=== PATIENT | female | born 1950 | race Caucasian/White ===

== ENCOUNTER 2020-02-19 14:30 | Outpatient (RCR) | payer SELFPAY | END 2020-03-15 23:59 | disposition home or self-care (01) | LOC: SPT 14:30 | PROVIDERS: PCP Family Medicine; Referring Provider Family Medicine; Visit Provider Family Medicine | DX: M54.89 Other dorsalgia (principal); M47.896 Other spondylosis, lumbar region | CPT/HCPCS: 97110; 97161 ==

== ENCOUNTER 2020-03-16 06:00 | Outpatient (RCR) | payer SELFPAY | END 2020-04-14 23:59 | disposition home or self-care (01) | LOC: SPT 06:00 | PROVIDERS: PCP Family Medicine; Referring Provider Family Medicine; Visit Provider Family Medicine | DX: M54.89 Other dorsalgia (principal); G89.29 Other chronic pain | CPT/HCPCS: 97110 ==

== ENCOUNTER 2020-03-29 12:07 | Emergency (ER) | payer SELFPAY ==
[2020-03-29 12:10] VITALS: BP 174/88; PULSE 80; RESP 18; TEMP 36.5; O2SAT 98; BMI 26.2
[2020-03-29] MEDS: ketorolac 30 mg/mL INJ IM (12:42)
[2020-03-29 13:03] VITALS: PULSE 70; O2SAT 99
--- NOTE | 2020-03-29 13:43 | ED_ITS ---
HPI - Back Pain/Injury General: Chief Complaint: Back Pain/Injury Stated Complaint: BACK PAIN Time Seen by Provider: 03/29/20 12:15 Source: patient Mode of arrival: ambulatory Limitations: no limitations History of Present Illness: MD elicited complaint: back pain Pertinent past history: prior back pain Timing: constant Similar Symptoms Previously: Yes Quality: burning and spasming Location: right upper back Radiation: none Exacerbating factors: movement Relieving factors: none Context: while lifting, turning/twisting, bending and other (Pt states this started after her last physical therapy session and then she was lifting [employer] boxes) Associated symptoms: Reports no associated symptoms and other (denies chest pain or SOB); Deny abdominal pain, arthralgias, chills, change in bowel habits, difficulty walking, dysuria, fatigue, fecal incontinence, fever(s), hematuria, myalgias, nausea, numbness, syncope, tingling/numbness/burning, urinary frequency, urinary urgency, vomiting or weakness Review of Systems Const: Denies: fever(s), chills or fatigue Eyes: Denies: change in vision, blurry vision, blind spots, photophobia, eye discomfort, eye discharge, eye redness, floaters or seeing flashes ENMT: Denies: throat pain, uvular edema, enlarged tonsils, odynophagia, hoarseness, mouth pain, swelling of lips/tongue, oral sores, bleeding gums, dental pain, dry mouth, ear or mastoid pain, ear discharge, change in hearing, tinnitus, disequilibrium, nasal discharge, nasal congestion, post nasal drip or sinus pain Card: Denies: syncope Resp: Denies: dyspnea, productive cough, non-productive cough, wheezing, stridor, pain on inspiration, change in phlegm color, hemoptysis or chest congestion GI: Denies: abdominal pain, nausea, vomiting, fecal incontinence or change in bowel habits : Denies: dysuria, urinary urgency or hematuria Musc: Denies: neck pain, extremity pain, extremity swelling, joint pain, joint swelling, joint redness, joint warmth or deformity Skin/Breast: Denies: rash, pruritus, erythema, sores, new lesions, changes in skin color or dry skin Neuro: Denies: difficulty walking Psych: Denies: anxiety, depression, suicidal ideation or homicidal ideation Endo: Denies: polyuria, polydipsia, tired all the time, cold intolerance, excessive sweating, flushing, hot flashes or heat intolerance Cristobal/Lymph: Denies: easy bruising, easy bleeding, petechiae, purpura, enlarged lymph nodes or tender lymph nodes All/Imm: Denies: urticaria, throat swelling, tongue swelling, facial swelling, acute wheezing or itchy eyes Physical Exam Const: COMMON NORMALS: no acute distress, patient oriented x3 and no limitations HENMT: THROAT: no uvular edema Chest: COMMONS NORMALS: normal inspection of the chest and normal palpation of entire chest wall Resp: COMMON NORMALS: normal respiratory effort, No retractions, No use of accessory muscles and clear to auscultation bilaterally AUSCULTATION: clear to auscultation bilaterally Cardio: COMMON NORMALS: regular rate and regular rhythm RATE: regular rate RHYTHM: regular rhythm : COMMON NORMALS: Yes no CVA tenderness and Yes normal external appearance BLADDER/KIDNEY EXAM: Yes no CVA tenderness and No CVA tenderness Back/Pelvis: COMMON NORMALS: no CVA tenderness, thoracic and lumbar spine normal to inspection, no thoracic nor lumbar tenderness, thoraco-lumbar ROM normal and straight leg raise negative bilaterally GENERAL BACK: No CVA tenderness, No erythema and No warmth THORACIC SPINE/UPPER BACK: Yes normal to inspection, Yes thoracic ROM normal, No thoracic spinal tenderness, Yes paraspinal muscle tenderness and Yes paraspinal muscle spasm LUMBAR SPINE/LOWER BACK: Yes normal to inspection and Yes lumbar ROM normal Extremity: COMMON NORMALS: normal to inspection, full ROM and capillary refill normal Neuro: COMMON NORMALS: patient oriented x3, CN's II-XII intact bilaterally, moves all extremities, no focal motor deficits, no sensory deficits noted and deep tendon reflexes 2+ bilaterally Psych: COMMON NORMALS: mental status grossly normal, Normal thought process present, cooperative, normal affect, speech normal, activity/motor behavior normal, denies hallucinations, denies homicidal ideation and denies suicidal ideation SPEECH: Yes normal speech THOUGHT PROCESS: Normal thought process present Skin: COMMON NORMALS: no rashes or lesions noted, no wounds and turgor normal GENERAL SKIN EXAM: no rashes or lesions noted and turgor normal Course Vital Signs: Vital signs: Vital Signs Temperature 97.7 F 03/29/20 12:10 Pulse Rate 70 03/29/20 13:03 Respiratory Rate 18 03/29/20 12:10 Blood Pressure 174/88 03/29/20 12:10 Pulse Oximetry 99 03/29/20 13:03 MDM - Back Pain/Injury MDM Narrative: Medical decision making narrative: 69 nyo [place] female patient presents with muscle spasm. 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 Pt goes to PT seconadary to a fractured T spine 2 years ago. Pt denies any chest pain or SOB. pain is reproducable. Pt states this pain is chronic for her but her tylenol is not helping with the muscle spams. pt dnies any fever. CAUTI considered but pt denies UA symptoms. no losss of bowel or bladder denies numbness or tingling. Pt was given toradol here and had clinical improvement. I will send home with short course of valium and have her follow up with PCP on tuesday. Pts abd is soft and nontedner. Pt ambulates without difficulty Differential Diagnosis: Differential diagnosis back pain/injury: Likely lumbar radiculopathy, sciatica, strain of lumbar region, renal colic, pyelonephritis, thoracic back pain, AAA and discitis Medical Records: Attestation: I reviewed the patient's medical records. Discharge Plan Discharge Clinical Impression: Muscle strain Condition: Stable Prescriptions: New Valium 2 mg tablet 2 mg PO TID PRN (Reason: muscle spasm) 3 Days Qty: 14 RF: 0 No Action Synthroid 100 mcg tablet 100 mcg PO DAILY RF: 0 Jade-D 12 Hour 60-120 mg tablet extended release 12 hr 1 tab PO DAILY RF: 0 Nexium 20 mg Capsule,Delayed Release(Dr/Ec) 20 mg PO DAILY PRN (Reason: Heartburn) RF: 0 Discharge Orders: Discharge Order (Routine); Ordered 03/29/20 Ordered By: Juli Salcedo Referrals: Eugene Arce [Primary Care Provider] - Discharge Diet: Advance as tolerated Discharge Activity: Limit activity as instructed Activity Restrictions/Additional Instructions: Please continue to take your tylenol per label directions Take Valium as needed for muscle spasms please note this can make you at risk for fall so please take extra fall precautions as discussed Please return to ER with increased pain, fever, chest pain or shortness of breath, numbness or tingling or loss of bowel or bladder or any other concerning symptoms Coding Level of Care Code ED Electronic Coils Supervisor for Ajay Bone
== END 2020-03-29 13:04 ==
PROVIDERS: Emergency Provider Registered Nurse; PCP Family Medicine
DX: S39.012A Strain of muscle, fascia and tendon of lower back, initial encounter (principal); X50.0XXA Overexertion from strenuous movement or load, initial encounter
CPT/HCPCS: 12345; 96372; 99281; 99283; J1885

== ENCOUNTER 2020-04-04 11:25 | Emergency (ER) | payer SELFPAY ==
[2020-04-04 11:42] VITALS: PULSE 75; RESP 16; TEMP 36.2; O2SAT 98; BMI 26.2
--- NOTE | 2020-04-04 12:15 | XR_ITS ---
WS: [id number] Exam: XR lumbar spine 2-3V* [id number] Date/Time of Exam: 04/04/2020 12:34 PM Reason For Exam: pain Comparison 03/28/2019. No acute fracture or dislocation. Degenerative vacuum disc at L4-5. Mild spondylosis. Old healed comp ression fracture of T12 without significant displacement. Osteopenia. Facet DJD at L4-5 and L5-S1. Mi ld DJD of the SI joints. XR/XR lumbar spine 2-3V* [id number] IMPRESSION: 1. No acute fracture or malalignment. 2. Degenerative changes and osteopenia. 3. Old nondisplaced biconcave compression fracture of T12.
--- NOTE | 2020-04-04 12:15 | XR_ITS ---
WS: [id number] Exam: XR thoracic spine 3V* [id number] Date/Time of Exam: 04/04/2020 12:34 PM Reason For Exam: back pain Comparison 03/28/2019 A mild compression fracture of the cephalad end plate of T9 is noted. Age is indeterminate. This was not identified on the prior study. Old compression fracture of the T12 noted without displacement. No other fractures of the T-spine. Increased thoracic kyphosis. Levoscoliosis of the T-spine and osteop enia. Paraspinal soft tissue structures are unremarkable. XR/XR thoracic spine 3V* [id number] IMPRESSION: 1. Low-grade compression fracture of the upper plate of T9 with about 10% loss of vertebral height and no posterior displacement. Fracture age is indeterminat e. This could be a recent fracture. 2. Old healed fracture of T12 without displacement. 20% loss of vertebral heigh t. 3. Mild degenerative changes, osteopenia and scoliosis. Increased kyphosis.
[2020-04-04 12:25] VITALS: BP 161/70; O2SAT 100
--- NOTE | 2020-04-04 12:44 | ED_ITS ---
HPI - Back Pain/Injury General: Chief Complaint: Back Pain/Injury Stated Complaint: BACK PAIN Time Seen by Provider: 04/04/20 11:45 History of Present Illness: HPI Narrative: 69-year-old female comes in complaining of back pain mid back on the right side of the spine. Is reproducible with palpation and with movement. She states that 2 years ago she had a fall that resulted in what she was told is a T12 fracture. Pertinent past history: prior back pain Onset (ago): day(s) Similar Symptoms Previously: Yes Quality: sharp and stabbing Location: thoracic spine (Right of the midline at the T10-12 level) Radiation: none Exacerbating factors: movement, walking, coughing/sneezing and lifting Relieving factors: supine Context: turning/twisting and bending Associated symptoms: Deny abdominal pain, arthralgias, chills, change in bowel habits, difficulty walking, dysuria, fatigue, fecal incontinence, fever(s), hematuria, myalgias, nausea, numbness, syncope, tingling/numbness/burning, urinary frequency, urinary urgency, vomiting or weakness Review of Systems Const: Denies: fever(s), chills or fatigue Card: Denies: syncope GI: Denies: abdominal pain, nausea, vomiting, fecal incontinence or change in bowel habits : Denies: dysuria, urinary urgency or hematuria Neuro: Denies: difficulty walking Physical Exam Const: COMMON NORMALS: no acute distress GENERAL APPEARANCE: cooperative and comfortable ORIENTATION/CONSCIOUSNESS: Yes awake, Yes oriented to person, Yes oriented to place and Yes oriented to time HENMT: COMMON NORMALS: normocephalic, atraumatic and hearing grossly normal bilaterally HEAD & SCALP: normocephalic and atraumatic Eye: COMMON NORMALS: Equal, round and reactive pupils present, EOMs intact bilaterally, conjunctivae normal and no scleral icterus CONJUNCTIVA: Yes conjunctivae normal PUPIL: Yes Equal, round and reactive pupils present Neck/C-Spine: COMMON NORMALS: no JVD Lymph: LYMPHATIC: no lymphadenopathy noted and no lymphedema noted Resp: COMMON NORMALS: normal respiratory effort, No retractions, No use of accessory muscles and clear to auscultation bilaterally AUSCULTATION: clear to auscultation bilaterally Cardio: COMMON NORMALS: no JVD, regular rate, regular rhythm and No murmurs present (Cardio) RATE: regular rate RHYTHM: regular rhythm GI: COMMON NORMALS: Soft to palpation and No hepatosplenomegaly present AUSCULTATION: Yes normoactive bowel sounds PALPATION: Yes Soft to palpation, No Tenderness to palpation present (GI), No Guarding due to palpation present (GI) and Yes No hepatosplenomegaly present Back/Pelvis: OTHER: Discomfort at the T9-10 level on the right laterally no pain over the spinous process Extremity: COMMON NORMALS: normal to inspection, capillary refill normal, no clubbing, cyanosis or edema, no calf tenderness and no pedal edema Neuro: SENSORIUM/ORIENTATION: Yes oriented to person, Yes oriented to place and Yes oriented to time Skin: COMMON NORMALS: no rashes or lesions noted GENERAL SKIN EXAM: no rashes or lesions noted Course Vital Signs: Vital signs: Vital Signs Temperature 97.2 F L 04/04/20 11:42 Pulse Rate 75 04/04/20 11:42 Respiratory Rate 16 04/04/20 11:42 Blood Pressure 161/70 04/04/20 12:25 Pulse Oximetry 100 04/04/20 12:25 Discharge Plan Discharge Patient Disposition: Home Clinical Impression: Compression fracture of thoracic vertebra, Osteoporosis Condition: Stable Prescriptions: New hydrocodone-acetaminophen 5-325 mg tablet 1 tab PO Q6H PRN (Reason: pain) Qty: 25 RF: 0 No Action Synthroid 100 mcg tablet 100 mcg PO DAILY RF: 0 Jade-D 12 Hour 60-120 mg tablet extended release 12 hr 1 tab PO DAILY RF: 0 Nexium 20 mg Capsule,Delayed Release(Dr/Ec) 20 mg PO DAILY PRN (Reason: Heartburn) RF: 0 Discharge Orders: Discharge Order (Routine); Ordered 04/04/20 Ordered By: Abdoulaye Heredia Referrals: Eugene Arce [Primary Care Provider] - Discharge Diet: Usual diet Discharge Activity: Limit activity as instructed Activity Restrictions/Additional Instructions: Avoid lifting greater than 10 pounds. Avoid stooping or bending. Pain medications as prescribed above. Case management will make arrangements for you to get into the pain clinic for evaluation for kyphoplasty. You also need to be seen by your primary care doctor for osteoporosis. Coding Level of Care Code ED Primary Care Nurse for Ajay Bone
[2020-04-04] MEDS: HYDROcodone-acetaminophen 5-325 mg Tablet 1 TAB PO (12:47)
[2020-04-04 13:26] VITALS: BP 167/77; PULSE 73; RESP 18; O2SAT 100
== END 2020-04-04 13:26 | disposition home or self-care (01) ==
PROVIDERS: Emergency Provider Family Medicine; PCP Family Medicine
DX: S22.070A Wedge compression fracture of T9-T10 vertebra, initial encounter for closed fracture (principal); W19.XXXA Unspecified fall, initial encounter; M81.0 Age-related osteoporosis without current pathological fracture
CPT/HCPCS: 12345; 72072; 72100; 99281; 99283

== ENCOUNTER 2020-04-22 11:30 | Emergency (ER) | payer SELFPAY ==
[2020-04-22 11:36] VITALS: BP 152/82; PULSE 84; RESP 18; TEMP 36; O2SAT 92; BMI 26.2
--- NOTE | 2020-04-22 11:47 | W.ED.BACK ---
HPI - Back Pain/Injury General: Chief Complaint: Back Pain/Injury Stated Complaint: BACK PAIN/INJURY Time Seen by Provider: 04/22/20 11:35 History of Present Illness: HPI Narrative: 69-year-old female who was seen in the emergency room proved previously with a current vertebral compression fracture continues to have pain. She returns today simply because she wanted her hydrocodone refilled she has follow-up with her primary care doctor and she is in the process of getting referred for kyphoplasty she denies any other new injuries denies any new pain just same pain she had before has not otherwise been sick lately. Associated symptoms: Deny abdominal pain, chills, dysuria, fatigue, fever(s), nausea, urinary urgency or vomiting Review of Systems Const: Denies: fever(s), chills, body aches, change in appetite, fatigue or malaise ENMT: Denies: throat pain, ear or mastoid pain, nasal discharge or nasal congestion Card: Denies: chest pain, edema, dyspnea on exertion or orthopnea Resp: Denies: dyspnea, productive cough or non-productive cough GI: Denies: abdominal pain, nausea, vomiting, hematemesis, coffee ground emesis, diarrhea, constipation, bloating, hematochezia or melena : Denies: flank pain, difficulty voiding, dysuria, urinary frequency or urinary urgency Physical Exam Const: COMMON NORMALS: no acute distress GENERAL APPEARANCE: cooperative and comfortable ORIENTATION/CONSCIOUSNESS: Yes awake, Yes oriented to person, Yes oriented to place and Yes oriented to time HENMT: COMMON NORMALS: normocephalic, atraumatic and hearing grossly normal bilaterally HEAD & SCALP: normocephalic and atraumatic Eye: COMMON NORMALS: Equal, round and reactive pupils present, EOMs intact bilaterally, conjunctivae normal and no scleral icterus CONJUNCTIVA: Yes conjunctivae normal PUPIL: Yes Equal, round and reactive pupils present Neck/C-Spine: COMMON NORMALS: no JVD Resp: COMMON NORMALS: normal respiratory effort, No retractions, No use of accessory muscles and clear to auscultation bilaterally AUSCULTATION: clear to auscultation bilaterally Cardio: COMMON NORMALS: no JVD, regular rate, regular rhythm and No murmurs present (Cardio) RATE: regular rate RHYTHM: regular rhythm Extremity: COMMON NORMALS: normal to inspection, capillary refill normal, no clubbing, cyanosis or edema, no calf tenderness and no pedal edema Neuro: SENSORIUM/ORIENTATION: Yes oriented to person, Yes oriented to place and Yes oriented to time Skin: COMMON NORMALS: no rashes or lesions noted GENERAL SKIN EXAM: no rashes or lesions noted Course Vital Signs: Vital signs: Vital Signs Temperature 96.8 F L 04/22/20 11:36 Pulse Rate 79 04/22/20 12:02 Respiratory Rate 18 04/22/20 12:02 Blood Pressure 152/82 04/22/20 12:02 Pulse Oximetry 97 04/22/20 12:02 MDM - Back Pain/Injury MDM Narrative: Medical decision making narrative: We will see if we get her into the local pain management or orthopedics for kyphoplasty syndrome. Encourage her to follow-up with her primary care doctor for refills on pain medication advised at this point we cannot continually refill narcotic pain medications. Patient readily admits the only reason she came in the emergency room was to get her narcotics refilled and she had not seen her primary care doctor in the office. It is during regular office hours she still has a opportunity to go and see him today. Discharge Plan Discharge Patient Disposition: Home Clinical Impression: Compression fracture of thoracic vertebra Condition: Stable Prescriptions: New Zanaflex 2 mg capsule 2 mg PO Q12H PRN (Reason: muscle spasticity) Qty: 14 RF: 0 diclofenac sodium 75 mg tablet,delayed release (DR/EC) 75 mg PO Q12H PRN (Reason: pain) Qty: 20 RF: 0 No Action hydrocodone-acetaminophen 5-325 mg tablet 1 tab PO Q6H PRN (Reason: pain) Qty: 25 RF: 0 Synthroid 100 mcg tablet 100 mcg PO DAILY RF: 0 Jade-D 12 Hour 60-120 mg tablet extended release 12 hr 1 tab PO DAILY RF: 0 Nexium 20 mg Capsule,Delayed Release(Dr/Ec) 20 mg PO DAILY PRN (Reason: Heartburn) RF: 0 Discharge Orders: Discharge ED (Routine); Ordered 04/22/20 Ordered By: Abdoulaye Heredia Referrals: Eugene Arce [Primary Care Provider] - Discharge Diet: Usual diet Discharge Activity: Increase activity as tolerated Activity Restrictions/Additional Instructions: This management will call with assistance to get you referred for a vertebral kyphoplasty earlier. Coding Level of Care Code ED Recreation Program Coordinator for Chg Fwd
[2020-04-22 12:02] VITALS: BP 152/82; PULSE 79; RESP 18; O2SAT 97
--- NOTE | 2020-04-22 12:08 | DCPLANNER ---
consulting sales manager had message to schedule a follow up appointment for patient with ortho, with Dr. Portillo. consulting sales manager called the ortho clinic, spoke with Earnestine, gave clinic patients information. consulting sales manager was told that patients information would be printed and reviewed. Clinic will call patient with appointment information.
--- NOTE | 2020-04-23 13:21 | DCPLANNER ---
Patient has a follow up appointment scheduled for April at 8:[address] Portillo at ortho. Clinic will call patient with appointment information.
--- NOTE | 2020-05-16 13:08 | DCPLANNER ---
Patient had a follow up appointment scheduled for 04.24.20 with ortho - patient did attend appointment.
== END 2020-04-22 12:03 | disposition home or self-care (01) ==
PROVIDERS: Emergency Provider Family Medicine; PCP Family Medicine
DX: S22.000A Wedge compression fracture of unspecified thoracic vertebra, initial encounter for closed fracture (principal); X58.XXXA Exposure to other specified factors, initial encounter
CPT/HCPCS: 12345; 99281

== ENCOUNTER 2020-04-24 13:47 | Outpatient (CLI) | payer SELFPAY ==
--- NOTE | 2020-04-24 13:55 | XR_ITS ---
WS: [id number] SCREENING DEXA SCAN [employer] CLINICAL INFORMATION: RECURRENT COMPRESSION FRACTURES COMPARISON: None. FINDINGS: The L1-L4 bone mineral density measures 0.814 g/cm2. This corresponds to a T score score of -3.0 and Z score of -1.3. Left femoral neck bone mineral density measures 0.728 g/cm2. This corresponds to a T score of -2.2 an d Z score of -0.7. Right femoral neck bone mineral density measures 0.732 g/cm2. This corresponds to a T score -2.2of an d Z score of -0.6. Mean femoral neck bone mineral density measures 0.730 g/cm2. This corresponds to a T score of -2.2 an d Z score of -0.6. XR/XR DEXA axial skeleton* [id number] IMPRESSION: Osteoporosis Patient's FRAX calculated 10 year probability for major osteoporotic fracture i s 41.5 % and osteoporotic hip fracture is 20.0%.
== END 2020-04-24 13:48 | disposition home or self-care (01) ==
LOC: RADWPI 13:52
PROVIDERS: PCP Family Medicine; Visit Provider Family Medicine
DX: M48.50XA Collapsed vertebra, not elsewhere classified, site unspecified, initial encounter for fracture (principal); X58.XXXA Exposure to other specified factors, initial encounter; M81.0 Age-related osteoporosis without current pathological fracture
CPT/HCPCS: 77080

== ENCOUNTER 2020-05-11 11:53 | Emergency (ER) | payer MEDICAID, SELFPAY ==
[2020-05-11 12:15] VITALS: BP 159/87; PULSE 80; RESP 14; TEMP 36.9; O2SAT 100; BMI 25.6
--- NOTE | 2020-05-11 12:20 | ED_ITS ---
HPI - Abdominal Pain General: Chief Complaint: Abdominal Pain Stated Complaint: abdominal pain Time Seen by Provider: 05/11/20 12:15 Source: patient Mode of arrival: ambulatory Limitations: no limitations History of Present Illness: HPI narrative: 69-year-old female states she has been having diffuse abdominal pain over the last week. She states she did have constipation but had a bowel movement 2 days ago. She states she has had colitis before this pain feels similar. States it starts on the right side and wraps around her left side. She states it is cramping pain rates a 5 out of 10. She denies any nausea vomiting or fever. Denies any worsening or improving factors. MD elicited complaint: abdominal pain Associated Symptoms: Denies chills, diarrhea, dysuria, fever(s), nausea and vomiting Review of Systems Const: Denies: fever(s), chills, body aches or change in appetite Eyes: Denies: blurry vision or eye discomfort ENMT: Denies: throat pain or dental pain Card: Denies: chest pain Resp: Denies: dyspnea GI: Reports: abdominal pain; Denies: nausea, vomiting or diarrhea : Denies: dysuria Musc: Denies: neck pain or back pain Skin/Breast: Denies: rash Neuro: Denies: headache(s) Psych: Denies: depression Cristobal/Lymph: Denies: easy bruising All/Imm: Denies: urticaria PFSH ED PFSH: Social History (Updated 04/24/20 @ 09:00 by Heather Herman LPN) Smoking and tobacco status: never smoked Alcohol intake: never Physical Exam Const: COMMON NORMALS: no acute distress, patient oriented x3 and healthy appearing HENMT: COMMON NORMALS: normocephalic and atraumatic HEAD & SCALP: normocephalic and atraumatic Eye: COMMON NORMALS: Equal, round and reactive pupils present and EOMs intact bilaterally PUPIL: Yes Equal, round and reactive pupils present Neck/C-Spine: COMMON NORMALS: full ROM and supple Chest: COMMONS NORMALS: normal inspection of the chest and normal palpation of entire chest wall Resp: COMMON NORMALS: normal respiratory effort, No retractions, No use of accessory muscles and clear to auscultation bilaterally AUSCULTATION: clear to auscultation bilaterally Cardio: COMMON NORMALS: regular rate, regular rhythm and No murmurs present (Cardio) RATE: regular rate RHYTHM: regular rhythm GI: COMMON NORMALS: Normal to inspection, nondistended, normoactive bowel s ounds present, Soft to palpation, non-tender and no masses PALPATION: Yes Soft to palpation Extremity: COMMON NORMALS: normal to inspection and full ROM Neuro: COMMON NORMALS: patient oriented x3, moves all extremities and no focal motor deficits Psych: COMMON NORMALS: mental status grossly normal, Normal thought process present and cooperative THOUGHT PROCESS: Normal thought process present Skin: COMMON NORMALS: no rashes or lesions noted and no wounds GENERAL SKIN EXAM: no rashes or lesions noted Course Vital Signs: Vital signs: Vital Signs Temperature 98.5 F 05/11/20 12:15 Pulse Rate 80 05/11/20 12:15 Respiratory Rate 14 05/11/20 12:15 Blood Pressure 159/87 05/11/20 12:15 Pulse Oximetry 100 05/11/20 12:15 MDM - Abdominal Pain MDM Narrative: Medical decision making narrative: Patient presents here with abdominal pain likely from constipation. CT does show constipation with no signs of acute surgical abdomen. Patient's blood work here is normal. She does have a slight urinary tract infection. We will place her on MiraLAX and Keflex. Her abdominal exam at discharge is benign with no tenderness. Patient is to follow-up with PCP and return if worsening. Lab Data: Labs: Lab Results 05/11/20 05/11/20 05/11/20 Range/Units 12:30 12:50 12:50 WBC 6.8 (4.0-10.0) 10^3/ uL RBC 4.31 (4.1-5.3) 10^6/u L Hgb 12.6 (11.5-15.3) g/dL Hct 38.8 (37.0-47.0) % MCV 90.0 (81-99) fL MCH 29.2 (28.0-34.0) pg MCHC 32.5 (30.0-36.0) g/dL RDW 13.9 (12.1-15.1) % Plt Count 352 (130-400) 10^3/c mm MPV 9.2 (7.4-10.4) fL Neut % (Auto) 55.4 % Lymph % (Auto) 30.9 % [place] % (Auto) 9.0 % Eos % (Auto) 3.4 % Baso % (Auto) 1.2 % Neut # (Auto) 3.77 (1.8-7.7) 10^3/u L Lymph # (Auto) 2.1 (0.8-4.8) 10^3/u L [place] # (Auto) 0.6 (0.2-0.9) 10^3/u L Eos # (Auto) 0.2 (0.0-0.8) 10^3/u L Baso # (Auto) 0.1 (0.0-0.1) 10^3/u L Nucleated RBC % (a uto) 0 % Nucleated RBCs # 0.0 /100WBC Sodium 140 (136-145) mmol/L Potassium 4.3 (3.5-5.1) mmol/L Chloride 101 (98-107) mmol/L Carbon Dioxide 29 (22-29) mmol/L Anion Gap 14.3 (5-19) BUN 14 (8-23) mg/dL Creatinine 0.8 (0.5-0.9) mg/dL GFR Calculation Not Reportable Glucose 123 H (65-115) mg/dL Calculated Osmolal ity 292 (285-295) mOsm/k g Calcium 9.5 (8.5-10.5) mg/dL Total Bilirubin 0.2 (0.15-1.2) mg/dL AST 25 (0-32) U/L ALT 31 (0-33) U/L Alkaline Phosphata se 137 H (35-105) IU/L Total Protein 7.6 (6.6-8.7) g/dL Albumin 4.5 (3.5-5.2) g/dL Globulin 3.1 (1.3-4.6) g/dL Lipase 61 H (13-60) U/L Urine Color Yellow (Yellow) Urine Appearance Hazy A (CLEAR) Urine pH 5 (5-7) Ur Specific Gravit y 1.015 (1.005-1.030) Urine Protein Neg (Negative) Urine Glucose (UA) Norm (Normal) Urine Ketones Negative (Negative) Urine Blood Neg (Negative) Urine Nitrate Negative (Negative) Urine Bilirubin Neg (Negative) Urine Urobilinogen Norm (Negative) mg/dL Ur Leukocyte [place] ase 2+ H (Negative) Urine RBC None (0-2) /hpf Urine WBC 25-40 H (0-5) /hpf Ur Squamous Epith Cells 0-4 H (0-5) /hpf Amorphous Sediment Not Reportable Urine Bacteria 1+ H (NONE) /hpf Urine Mucus Trace /hpf Imaging Data ^: CT Abd/Pel: [facility]'s [facility] [address] [place] [address] CT Scan Report Signed Patient: Lorraine Ko Unit #: [id number] : [id number] Age/Sex: 69 / F ADM Date: 05/11/20 Loc: ER Room/Bed: Attending Dr: Ordering Provider/Ordering MD: Shauna Reid MD Date of Service: 05/11/20 Procedure(s): CT abdomen pelvis wo con [id number] Accession Number(s): [id number] Report Number: [id number] PROCEDURE INFORMATION: Exam: CT Abdomen And Pelvis Without Contrast Exam date and time: 05/11/2020 12:58 PM Age: 69 years old Clinical indication: Abdominal pain; Generalized; Additional info: Abd pain TECHNIQUE: Imaging protocol: Computed tomography of the abdomen and pelvis without contrast. Radiation optimization: All CT scans at this facility use at least one of these dose optimization techniques: automated exposure control; mA and/or kV adjustment per patient size (includes targeted exams where dose is matched to clinical indication); or iterative reconstruction. COMPARISON: No relevant prior studies available. RADIATION DOSE METRICS: Total DLP (mGy-cm): 461.71 FINDINGS: Mediastinal space: Small hiatal hernia. Liver: Normal. No mass. Gallbladder and bile ducts: Normal. No calcified stones. No ductal dilation. Pancreas: Normal. No ductal dilation. Spleen: Normal. No splenomegaly. Adrenal glands: Normal. No mass. Kidneys and ureters: Normal. No hydronephrosis. Stomach and bowel: Moderate stool burden primarily in the proximal colon. There is diverticulosis of the colon without evidence of diverticulitis. Appendix: No evidence of appendicitis. Intraperitoneal space: Unremarkable. No free air. No significant fluid collection. Vasculature: Unremarkable. No abdominal aortic aneurysm. Lymph nodes: Unremarkable. No enlarged lymph nodes. Urinary bladder: Unremarkable as visualized. Reproductive: Unremarkable as visualized. Bones/joints: Chronic T12 compression deformity. There are lower lumbar disc bulges. Benign hemangioma in the L4 vertebra. Soft tissues: Tiny fat containing umbilical hernia. CT/CT abdomen pelvis wo con [id number] IMPRESSION: No acute findings. There is a moderate stool burden in the proximal colon. Discharge Plan Discharge Patient Disposition: Home Clinical Impression: Acute cystitis Constipation Qualifiers: Constipation type: unspecified constipation type Qualified Code(s): K59.00 - Constipation, unspecified Condition: Stable Prescriptions: New Keflex 500 mg capsule 500 mg PO Q6H 7 Days Qty: 28 RF: 0 Miralax 17 gram/dose powder 17 g PO DAILY PRN (Reason: constipation) Qty: 119 RF: 0 No Action tramadol 50 mg tablet 50 mg PO BID PRN (Reason: pain) Qty: 40 RF: 0 hydrocodone-acetaminophen 5-325 mg tablet 1 tab PO Q6H PRN (Reason: pain) Qty: 25 RF: 0 Synthroid 100 mcg tablet 100 mcg PO DAILY RF: 0 Jade-D 12 Hour 60-120 mg tablet extended release 12 hr 1 tab PO DAILY RF: 0 Nexium 20 mg Capsule,Delayed Release(Dr/Ec) 20 mg PO DAILY PRN (Reason: Heartburn) RF: 0 Zanaflex 2 mg capsule 2 mg PO Q12H PRN (Reason: muscle spasticity) Qty: 14 RF: 0 diclofenac sodium 75 mg tablet,delayed release (DR/EC) 75 mg PO Q12H PRN (Reason: pain) Qty: 20 RF: 0 Discharge Orders: Discharge ED (Routine); Ordered 05/11/20 Ordered By: Shauna Reid Referrals: Eugene Arce [Primary Care Provider] - 1-3 days Discharge Diet: Advance as tolerated Discharge Activity: Resume usual activity Patient Instructions: Constipation (ED) Coding Level of Care Code ED [employer] 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
--- NOTE | 2020-05-11 12:48 | CTR_ITS ---
PROCEDURE INFORMATION: Exam: CT Abdomen And Pelvis Without Contrast Exam date and time: 05/11/2020 12:58 PM Age: 69 years old Clinical indication: Abdominal pain; Generalized; Additional info: Abd pain TECHNIQUE: Imaging protocol: Computed tomography of the abdomen and pelvis without contrast. Radiation optimization: All CT scans at this facility use at least one of these dose optimization techniques: automated exposure control; mA and/or kV adjustment per patient size (includes targeted exams where dose is matched to clinical indication); or iterative reconstruction. COMPARISON: No relevant prior studies available. RADIATION DOSE METRICS: Total DLP (mGy-cm): 461.71 FINDINGS: Mediastinal space: Small hiatal hernia. Liver: Normal. No mass. Gallbladder and bile ducts: Normal. No calcified stones. No ductal dilation. Pancreas: Normal. No ductal dilation. Spleen: Normal. No splenomegaly. Adrenal glands: Normal. No mass. Kidneys and ureters: Normal. No hydronephrosis. Stomach and bowel: Moderate stool burden primarily in the proximal colon. There is diverticulosis of the colon without evidence of diverticulitis. Appendix: No evidence of appendicitis. Intraperitoneal space: Unremarkable. No free air. No significant fluid collection. Vasculature: Unremarkable. No abdominal aortic aneurysm. Lymph nodes: Unremarkable. No enlarged lymph nodes. Urinary bladder: Unremarkable as visualized. Reproductive: Unremarkable as visualized. Bones/joints: Chronic T12 compression deformity. There are lower lumbar disc bulges. Benign hemangioma in the L4 vertebra. Soft tissues: Tiny fat containing umbilical hernia. CT/CT abdomen pelvis wo con [id number] IMPRESSION: No acute findings. There is a moderate stool burden in the proximal colon. Radiation Dose CTDIVOL = (mGy): DLP = 461.71 (mGy-cm)
[2020-05-11 13:03] LABS: Basophils # 0.1 10^3/uL (0.0-0.1); Basophils % 1.2 %; Eosinophils # 0.2 10^3/uL (0.0-0.8); Eosinophils % 3.4 %; Hematocrit 38.8 % (37.0-47.0); Hemoglobin 12.6 g/dL (11.5-15.3); Lymphocytes # 2.1 10^3/uL (0.8-4.8); Lymphocytes % 30.9 %; Mean Corpuscular HGB Conc 32.5 g/dL (30.0-36.0); Mean Corpuscular Hemoglobin 29.2 pg (28.0-34.0); Mean Platelet Volume 9.2 fL (7.4-10.4); Monocytes # 0.6 10^3/uL (0.2-0.9); Neutrophils # 3.77 10^3/uL (1.8-7.7); Neutrophils % 55.4 %; Nucleated Red Blood Cells % 0 %; Platelet Count 352 10^3/cmm (130-400); Red Blood Count 4.31 10^6/uL (4.1-5.3); Red Cell Distribution Width 13.9 % (12.1-15.1); White Blood Count 6.8 10^3/uL (4.0-10.0)
[2020-05-11 13:25] LABS: Alanine Aminotransferase 31 U/L (0-33); Albumin Level 4.5 g/dL (3.5-5.2); Alkaline Phosphatase 137 IU/L (35-105); Anion Gap 14.3 (5-19); Aspartate Amino Transferase 25 U/L (0-32); Blood Urea Nitrogen 14 mg/dL (8-23); Calcium 9.5 mg/dL (8.5-10.5); Carbon Dioxide 29 mmol/L (22-29); Chloride 101 mmol/L (98-107); Creatinine Clr Calc Pharmacy 56.4722; Globulin 3.1 g/dL (1.3-4.6); Glucose 123 mg/dL (65-115); Lipase 61 U/L (13-60); Osmolality Calculated 292 mOsm/kg (285-295); Potassium 4.3 mmol/L (3.5-5.1); Sodium 140 mmol/L (136-145); Total Bilirubin 0.2 mg/dL (0.15-1.2); Total Protein 7.6 g/dL (6.6-8.7)
[2020-05-11 13:36] LABS: Add Urine Microscopic? YES; Bilirubin Urine Neg (Negative); Blood Urine Neg (Negative); Glucose Urine UA Norm (Normal); Ketones Urine Negative (Negative); Leukocyte Esterase Urine 2+ (Negative); Nitrate Urine Negative (Negative); Protein Urine Neg (Negative); Specific Gravity, Urine 1.015 (1.005-1.030); Urine Appearance Hazy (CLEAR); Urine Color Yellow (Yellow); Urobilinogen Urine Norm (Negative); pH Urine 5 (5-7)
[2020-05-11 13:37] LABS: WBC Urine 25-40 /hpf (0-5)
[2020-05-11 13:38] LABS: Bacteria Urine 1+ /hpf; Mucus Urine TRACE /hpf; Squamous Epithelial Cell Urine 0-4 /hpf (0-5)
[2020-05-11 13:39] LABS: Add Urine Culture? Yes
[2020-05-11 14:06] VITALS: BP 143/87; PULSE 72; RESP 14; O2SAT 100
== END 2020-05-11 14:08 | disposition home or self-care (01) ==
PROVIDERS: Emergency Provider Emergency Medicine; PCP Family Medicine
DX: K59.00 Constipation, unspecified (principal); N30.00 Acute cystitis without hematuria
CPT/HCPCS: 12345; 74176; 80053; 81001; 83690; 85025; 87086; 99281; 99283

== ENCOUNTER 2020-05-19 11:21 | Emergency (ER) | payer MEDICAID, SELFPAY ==
[2020-05-19 11:26] VITALS: BP 112/72; PULSE 94; RESP 18; TEMP 36.6; O2SAT 100; BMI 25.6
--- NOTE | 2020-05-19 12:26 | CTR_ITS ---
PROCEDURE INFORMATION: Exam: CT Abdomen And Pelvis Without Contrast Exam date and time: 05/19/2020 3:05 PM Age: 69 years old Clinical indication: Abdominal pain; Additional info: Abd pain TECHNIQUE: Imaging protocol: Computed tomography of the abdomen and pelvis without contrast. Radiation optimization: All CT scans at this facility use at least one of these dose optimization techniques: automated exposure control; mA and/or kV adjustment per patient size (includes targeted exams where dose is matched to clinical indication); or iterative reconstruction. COMPARISON: CT abdomen pelvis wo con [id number] 05/11/2020 12:49 PM RADIATION DOSE METRICS: Total DLP (mGy-cm): 453.71 FINDINGS: Detailed evaluation of the abdominal and pelvic viscera is somewhat limited in the absence of intravenous contrast. Lungs: Interstitial prominence and bibasilar parenchymal stranding. Mild right middle lobe airspace disease. Hiatal hernia. Liver: No focal hepatic mass. Gallbladder and bile ducts: No cholelithiasis or biliary ductal dilatation. Pancreas: No pancreatic mass or ductal dilatation. Spleen: No splenomegaly. Adrenal glands: unremarkable adrenals. Kidneys and ureters: 1 mm left ureteral calculus at the L3 level, without significant hydronephrosis. Stomach and bowel: Wall thickening in the nondistended stomach. Small bowel dilatation without a transition zone. Diverticula, without pericolonic inflammation. Appendix: No acute appendicitis. Intraperitoneal space: No significant free fluid. Vasculature: Normal caliber of the abdominal aorta. Pelvic vascular calcifications. Lymph nodes: Subcentimeter lymph nodes. Urinary bladder: Unremarkable bladder. Reproductive: Status post hysterectomy. 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 Osteopenia and chronic T12 compression fracture. Degenerative change and disc bulging. Soft tissues: Small fat containing umbilical hernia. CT/CT abdomen pelvis wo con [id number] IMPRESSION: 1. 1 mm left ureteral calculus at the L3 level, without significant hydronephrosis. 2. Wall thickening in the nondistended stomach. 3. Additional findings as described above. Radiation Dose CTDIVOL = (mGy): DLP = 453.71 (mGy-cm)
--- NOTE | 2020-05-19 13:36 | ED_ITS ---
HPI - Abdominal Pain General: Chief Complaint: Abdominal Pain Stated Complaint: SEVERE UPPER AB PAIN, DIARRHEA Time Seen by Provider: 05/19/20 13:35 Source: patient Mode of arrival: ambulatory Limitations: no limitations History of Present Illness: HPI narrative: Patient is a nice 69-year-old female who presents to ED today with a complaint of upper abdominal pain. Patient tells me pain has been present for approximately a week now. She was seen here when pain first began and had normal labs and a fairly normal CT scan. CT scan did show some constipation. She was also diagnosed with a UTI on that visit and placed on Keflex. Patient tells me over the past week pain has progressively worsened. She states pain starts on the right side of her abdomen and radiates over to the left. She does have a history of colitis and states her symptoms today feel similar. She started having diarrhea today and states she has had 10 episodes of nonbloody diarrhea. Reports pain feels crampy. She has not had any episodes of vomiting but does feel nauseous and is not able to eat. She denies fevers but has been experiencing chills. MD elicited complaint: abdominal pain Pertinent past history: other (colitis) Onset (ago): day(s) Pain Consistency: constant and colicky Severity: moderate Quality: cramping Exacerbating factors: eating Relieving factors: nothing Associated Symptoms: Reports chills, diarrhea and nausea; Denies dysuria, excessive flatus, fever(s), heartburn, hematochezia, hematemesis, melena and vomiting Review of Systems Const: Reports: chills; Denies: fever(s), body aches, change in appetite, change in weight, fatigue or malaise Card: Denies: chest pain Resp: Denies: dyspnea GI: Reports: abdominal pain, nausea and diarrhea; Denies: vomiting, hematemesis, dysphagia, heartburn, excessive flatus, pain on defecation, hematochezia, melena or white/light colored stool : Denies: flank pain, difficulty voiding, dysuria, urinary frequency, urinary urgency or urinary hesitancy Musc: Denies: back pain Neuro: Denies: headache(s) PFSH ED PFSH: Social History (Updated 04/24/20 @ 09:00 by Heather Herman LPN) Smoking and tobacco status: never smoked Alcohol intake: never Physical Exam Const: COMMON NORMALS: no acute distress, average body habitus, patient oriented x3, no limitations, healthy appearing, alert and well nourished Resp: COMMON NORMALS: normal respiratory effort and clear to auscultation bilaterally AUSCULTATION: clear to auscultation bilaterally Cardio: COMMON NORMALS: regular rate and regular rhythm RATE: regular rate RHYTHM: regular rhythm GI: COMMON NORMALS: Normal to inspection, nondistended, normoactive bowel sounds present, Soft to palpation, No hepatosplenomegaly present and no masses PALPATION: Yes Soft to palpation, Yes Tenderness to palpation present (GI) (across upper abdomen) and Yes No hepatosplenomegaly present : COMMON NORMALS: Yes no CVA tenderness BLADDER/KIDNEY EXAM: Yes no CVA tenderness Back/Pelvis: COMMON NORMALS: no CVA tenderness Extremity: COMMON NORMALS: normal to inspection GENERAL: Yes normal exam except as noted Neuro: [place] COMA SCALE: document GCS findings [place] coma scale eye opening: Spontaneous [place] coma scale verbal response: Orientated [place] coma scale motor response: Obey commands [place] coma scale total score: 15 COMMON NORMALS: patient oriented x3, moves all extremities, no focal motor deficits and no sensory deficits noted SENSORIUM/ORIENTATION: Yes alert Skin: COMMON NORMALS: no rashes or lesions noted GENERAL SKIN EXAM: no rashes or lesions noted Course Vital Signs: Vital signs: Vital Signs Temperature 97.9 F 05/19/20 11:26 Pulse Rate 73 05/19/20 16:18 Respiratory Rate 16 05/19/20 16:18 Blood Pressure 120/68 05/19/20 16:18 Pulse Oximetry 98 05/19/20 16:18 MDM - Abdominal Pain MDM Narrative: Medical decision making narrative: Patient has not had any episodes of diarrhea while here. We were contacted by lab stating for whatever reason we needed a repeat urine on patient. She has refused to give us another urine sample during her visit. UA culture from last visit was normal. She refused IV contrast on her CT scan. Her vital signs are completely stable. Her lab work at this time is nonconcerning. She does have some mild nonspecific elevations to her LFTs. She has a negative [place] sign. Her gallbladder appears normal on her CT scan. CT scan showing a 1 mm left ureter stone however I do not feel this is causing patient's symptoms today. She has some mild thickening to her stomach. She has no evidence for colitis. Patient is requesting to go home at this time. She does not want pain medications at home. Patient tells me she will follow up with primary care or return to the ED for worsening symptoms. Lab Data: Labs: Lab Results 05/19/20 05/19/20 05/19/20 Range/Units 14:45 14:55 14:55 WBC 3.8 L (4.0-10.0) 10^3/ uL RBC 4.45 (4.1-5.3) 10^6/u L Hgb 12.9 (11.5-15.3) g/dL Hct 39.5 (37.0-47.0) % MCV 88.8 (81-99) fL MCH 29.0 (28.0-34.0) pg MCHC 32.7 (30.0-36.0) g/dL RDW 14.1 (12.1-15.1) % Plt Count 222 (130-400) 10^3/c mm MPV 9.1 (7.4-10.4) fL Neut % (Auto) 47.2 % Lymph % (Auto) 31.8 % [place] % (Auto) 20.4 % Eos % (Auto) 0.3 % Baso % (Auto) 0.3 % Neut # (Auto) 1.78 L (1.8-7.7) 10^3/u L Lymph # (Auto) 1.2 (0.8-4.8) 10^3/u L [place] # (Auto) 0.8 (0.2-0.9) 10^3/u L Eos # (Auto) 0.0 (0.0-0.8) 10^3/u L Baso # (Auto) 0.0 (0.0-0.1) 10^3/u L Nucleated RBC % (a uto) 0 % Nucleated RBCs # 0.0 /100WBC Sodium 138 (136-145) mmol/L Potassium 3.8 (3.5-5.1) mmol/L Chloride 100 (98-107) mmol/L Carbon Dioxide 25 (22-29) mmol/L Anion Gap 16.8 (5-19) BUN 15 (8-23) mg/dL Creatinine 0.8 (0.5-0.9) mg/dL GFR Calculation Not Reportable Glucose 98 (65-115) mg/dL Calculated Osmolal ity 287 (285-295) mOsm/k g Calcium 8.6 (8.5-10.5) mg/dL Total Bilirubin 0.2 (0.15-1.2) mg/dL AST 33 H (0-32) U/L ALT 43 H (0-33) U/L Alkaline Phosphata se 137 H (35-105) IU/L Total Protein 6.9 (6.6-8.7) g/dL Albumin 3.9 (3.5-5.2) g/dL Globulin 3.0 (1.3-4.6) g/dL Lipase 54 (13-60) U/L Urine Color Cancelled Urine Appearance Cancelled Urine pH Cancelled Ur Specific Gravit y Cancelled Urine Protein Cancelled Urine Glucose (UA) Cancelled Urine Ketones Cancelled Urine Blood Cancelled Urine Nitrate Cancelled Urine Bilirubin Cancelled Prot Sulfosalicyli c Acd Cancelled Urine Urobilinogen Cancelled Ur Leukocyte [place] ase Cancelled Urine RBC Cancelled Urine WBC Cancelled Ur Squamous Epith Cells Cancelled Ur Transition Epit h Cell Cancelled Ur Renal Epithelia l Cell Cancelled Calcium Oxalate Cr ystal Cancelled Uric Acid Crystals Cancelled Triple Phos [place] ls Cancelled Other Crystals Cancelled Amorphous Sediment Cancelled Urine Bacteria Cancelled Hyaline Casts Cancelled Fine Granular Cast s Cancelled Coarse Granular Ca sts Cancelled RBC Casts Cancelled Other Casts Cancelled Urine Mucus Cancelled Urine Trichomonas Cancelled Urine Yeast Cancelled Urine Sperm Cancelled Ur Oval Fat Bodies Cancelled Imaging Data ^: CT Abd/Pel: Radiologist's impression: [address] [address] [address] Scan Report Signed Patient: Lorraine Ko #: [id number] : 9Acct#:[id number] Age/Sex: 69 / FADM Date: 05/19/20 Loc: ERRoom/Bed: Attending Dr: Ordering Provider/Ordering MD: Abdoulaye Heredia DO Date of Service: 05/19/20 Procedure(s): CT abdomen pelvis con [id number] Accession Number(s): [id number] Report Number: [id number] PROCEDURE INFORMATION: Exam: CT Abdomen And Pelvis Without Contrast Exam date and time: 05/19/2020 3:05 PM Age: 69 years old Clinical indication: Abdominal pain; Additional info: Abd pain TECHNIQUE: Imaging protocol: Computed tomography of the abdomen and pelvis without contrast. Radiation optimization: All CT scans at this facility use at least one of these dose optimization techniques: automated exposure control; mA and/or kV adjustment per patient size (includes targeted exams where dose is matched to clinical indication); or iterative reconstruction. COMPARISON: CT abdomen pelvis wo con [id number] 05/11/2020 12:49 PM RADIATION DOSE METRICS: Total DLP (mGy-cm): 453.71 FINDINGS: Detailed evaluation of the abdominal and pelvic viscera is somewhat limited in the absence of intravenous contrast. Lungs: Interstitial prominence and bibasilar parenchymal stranding. Mild right middle lobe airspace disease. Hiatal hernia. Liver: No focal hepatic mass. Gallbladder and bile ducts: No cholelithiasis or biliary ductal dilatation. Pancreas: No pancreatic mass or ductal dilatation. Spleen: No splenomegaly. Adrenal glands: unremarkable adrenals. Kidneys and ureters: 1 mm left ureteral calculus at the L3 level, without significant hydronephrosis. Stomach and bowel: Wall thickening in the nondistended stomach. Small bowel dilatation without a transition zone. Diverticula, without pericolonic inflammation. Appendix: No acute appendicitis. Intraperitoneal space: No significant free fluid. Vasculature: Normal caliber of the abdominal aorta. Pelvic vascular calcifications. Lymph nodes: Subcentimeter lymph nodes. Urinary bladder: Unremarkable bladder. Reproductive: Status post hysterectomy. 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 Osteopenia and chronic T12 compression fracture. Degenerative change and disc bulging. Soft tissues: Small fat containing umbilical hernia. CT/CT abdomen pelvis wo con [id number] IMPRESSION: 1. 1 mm left ureteral calculus at the L3 level, without significant hydronephrosis. 2. Wall thickening in the nondistended stomach. 3. Additional findings as described above. Radiation Dose CTDIVOL = (mGy): DLP = 453.71 (mGy-cm) Dictated By:Huang Tierney MD Signed By:Huang Tierneyigned Date/Time:05/19/20 154 DD/ 154 Discharge Plan Discharge Patient Disposition: Home Clinical Impression: Abdominal pain of unknown cause Condition: Stable Prescriptions: New dicyclomine 10 mg capsule 10 mg PO TID Qty: 14 RF: 0 No Action tramadol 50 mg tablet 50 mg PO BID PRN (Reason: pain) Qty: 40 RF: 0 polyethylene glycol 3350 [Miralax] 17 gram/dose powder 17 g PO DAILY PRN (Reason: constipation) Qty: 119 RF: 0 multivitamin Tablet 1 tab PO DAILY@18 RF: 0 alendronate 70 mg tablet 70 mg PO Q7D RF: 0 Tylenol Extra Strength 500 mg Tablet 500 mg PO PRN RF: 0 Aleve 220 mg Tablet 220 mg PO PRN RF: 0 Vitamin D3 25 mcg (1,000 unit) Capsule 25 mcg PO DAILY@18 RF: 0 Caltrate 600 plus D 600 mg (1,500 mg)-800 unit Tablet,Chewable 1 tab PO DAILY@18 RF: 0 levothyroxine [Synthroid] 100 mcg tablet 100 mcg PO DAILY@09 RF: 0 fexofenadine-pseudoephedrine [Jade-D 12 Hour] 60-120 mg tablet extended release 12 hr 1 tab PO DAILY RF: 0 esomeprazole magnesium [Nexium] 20 mg Capsule,Delayed Release(Dr/Ec) 20 mg PO DAILY PRN (Reason: Heartburn) RF: 0 Discharge Orders: Discharge ED (Routine); Ordered 05/19/20 Ordered By: Rula Johnson Referrals: Eugene Arce [Primary Care Provider] - Patient Instructions: Abdominal Pain (ED) Activity Restrictions/Additional Instructions: As discussed please return to the emergency department for worsening abdominal pain, repetitive episodes of vomiting, bloody diarrhea, worsening or severe diarrhea, fevers greater than 100.4, inability to urinate, or any other concerns you may have. Otherwise please follow-up with primary care in the next 3 to 5 days for reevaluation. Coding Level of Care Code ED Fisher Eel for Ajay Fwlucero Exam Comprehensive
[2020-05-19] MEDS: sodium chloride 0.9% 500 ML 999 ML IV (13:55)
[2020-05-19 14:32] VITALS: BP 108/65; PULSE 73; RESP 19; O2SAT 98
[2020-05-19 15:04] LABS: Basophils % 0.3 %; Eosinophils % 0.3 %; Hematocrit 39.5 % (37.0-47.0); Hemoglobin 12.9 g/dL (11.5-15.3); Lymphocytes # 1.2 10^3/uL (0.8-4.8); Lymphocytes % 31.8 %; Mean Corpuscular HGB Conc 32.7 g/dL (30.0-36.0); Mean Corpuscular Volume 88.8 fL (81-99); Mean Platelet Volume 9.1 fL (7.4-10.4); Monocytes # 0.8 10^3/uL (0.2-0.9); Monocytes % 20.4 %; Neutrophils # 1.78 10^3/uL (1.8-7.7); Neutrophils % 47.2 %; Nucleated Red Blood Cells % 0 %; Platelet Count 222 10^3/cmm (130-400); Red Blood Count 4.45 10^6/uL (4.1-5.3); Red Cell Distribution Width 14.1 % (12.1-15.1); White Blood Count 3.8 10^3/uL (4.0-10.0)
[2020-05-19 15:21] LABS: Alanine Aminotransferase 43 U/L (0-33); Albumin Level 3.9 g/dL (3.5-5.2); Alkaline Phosphatase 137 IU/L (35-105); Anion Gap 16.8 (5-19); Aspartate Amino Transferase 33 U/L (0-32); Blood Urea Nitrogen 15 mg/dL (8-23); Calcium 8.6 mg/dL (8.5-10.5); Carbon Dioxide 25 mmol/L (22-29); Chloride 100 mmol/L (98-107); Creatinine Clr Calc Pharmacy 56.4722; Glucose 98 mg/dL (65-115); Lipase 54 U/L (13-60); Osmolality Calculated 287 mOsm/kg (285-295); Potassium 3.8 mmol/L (3.5-5.1); Sodium 138 mmol/L (136-145); Total Bilirubin 0.2 mg/dL (0.15-1.2); Total Protein 6.9 g/dL (6.6-8.7)
[2020-05-19 16:18] VITALS: BP 120/68; PULSE 73; RESP 16; O2SAT 98
== END 2020-05-19 17:06 | disposition home or self-care (01) ==
PROVIDERS: Family Medicine; Emergency Provider Physician Assistant; PCP Family Medicine
DX: R10.9 Unspecified abdominal pain (principal)
CPT/HCPCS: 12345; 74176; 80053; 81001; 83690; 85025; 96374; 99283; J0131; J7040

== ENCOUNTER 2020-05-20 10:56 | Emergency (ER) | payer MEDICAID, SELFPAY ==
[2020-05-20] VITALS (7 sets, daily range): BP systolic 113–162; BP diastolic 63–99; PULSE 74–86; RESP 15–18; TEMP 36.9; O2SAT 95–99; BMI 23.8
--- NOTE | 2020-05-20 11:50 | XR_ITS ---
WS: [id number] LEFT RIBS, MULTIPLE VIEWS WITH PA CHEST HISTORY: lower rib pain COMPARISON: None. Lungs and mediastinum: Well aerated. No pneumothorax or pulmonary contusion. Ribs: No rib fractures or bone destruction identified. Mild reverse S-shaped curvature thoracolumbar spine. XR/XR ribs LT mn 3V w CXR1V [id number] IMPRESSION: No LEFT rib fractures identified.
--- NOTE | 2020-05-20 12:07 | W.ED.ABDPA2 ---
HPI - Abdominal Pain General: Chief Complaint: Abdominal Pain Stated Complaint: Lt side Pain Time Seen by Provider: 05/20/20 11:21 Source: patient, RN notes reviewed and old records reviewed Mode of arrival: ambulatory Limitations: no limitations History of Present Illness: HPI narrative: The patient is a 69-year-old female who comes into the emergency department with complaints of left upper quadrant/left lower rib pain that has been going on for at least 3 days. She was seen here yesterday for the same thing and was not very open to a complex investigations or medications as she had some concerns, basically she was worried about side effects of medications including IV contrast. She felt much better after intravenous acetaminophen and elected to be discharged home. She had right-sided pain about 2 weeks ago and was seen here for the same thing. Evaluation both times have been unremarkable. Yesterday she had diagnosed a left ureteric calculus. She has nausea, but no vomiting. She also has severe diarrhea for 3 days. Diarrhea is not watery but soft and runny, nonbloody. She denies any fever, denies any urinary symptoms. MD elicited complaint: abdominal pain Onset (ago): day(s) (3) Pain Consistency: constant Location: Chest and LUQ Quality: sharp Migration to: no migration Exacerbating factors: nothing Relieving factors: nothing Associated Symptoms: Reports anorexia, change in bowel habits, change in stool character, diarrhea, loose stools and poor appetite; Denies belching, bloating, chills, coffee ground emesis, constipation, GI cramping, dyspepsia, dysuria, excessive flatus, fever(s), heartburn, hematochezia, hematuria, hematemesis, fecal incontinence, melena, nausea, syncope and vomiting Review of Systems General: Reports: 10 or more systems reviewed and unremarkable except in HPI and below Const: Denies: fever(s) or chills Eyes: Denies: change in vision or blurry vision ENMT: Denies: throat pain, enlarged tonsils, odynophagia, hoarseness, mouth pain or swelling of lips/tongue Card: Denies: syncope Resp: Denies: dyspnea, productive cough or non-productive cough GI: Reports: diarrhea, change in bowel habits and change in stool character; Denies: nausea, vomiting, hematemesis, coffee ground emesis, heartburn, constipation, bloating, GI cramping, belching, excessive flatus, fecal incontinence, hematochezia or melena : Denies: dysuria or hematuria Musc: Denies: neck pain, back pain or extremity swelling Skin/Breast: Denies: rash, pruritus or erythema Neuro: Denies: headache(s), numbness in extremities or weakness in extremities Endo: Denies: polyuria, polydipsia or tired all the time PFSH ED PFSH: Social History Smoking and tobacco status: never smoked Alcohol intake: never Physical Exam Const: COMMON NORMALS: no acute distress, average body habitus, patient oriented x3, no limitations, healthy appearing, alert and well nourished HENMT: COMMON NORMALS: normocephalic, atraumatic and moist oral mucous membranes HEAD & SCALP: normocephalic and atraumatic Neck/C-Spine: COMMON NORMALS: no meningeal signs and no JVD Chest: COMMONS NORMALS: normal inspection of the chest CHEST: Yes localized rib tenderness with anteroposterior compression (left lower rib tenderness) Resp: COMMON NORMALS: normal respiratory effort, No retractions, No use of accessory muscles, clear to auscultation bilaterally and percussion normal AUSCULTATION: clear to auscultation bilaterally PERCUSSION: percussion normal Cardio: COMMON NORMALS: no JVD, regular rate, regular rhythm, S1 normal heart sound present, S2 normal heart sound present, No gallops present (Cardio), No clicks present (Cardio), No murmurs present (Cardio), No rub (Cardio) and Peripheral pulses 2+ throughout RATE: regular rate RHYTHM: regular rhythm HEART SOUNDS: S1 normal heart sound present and S2 normal heart sound present PERIPHERAL PULSES: Peripheral pulses 2+ throughout GI: COMMON NORMALS: Normal to inspection, nondistended, normoactive bowel sounds present, Soft to palpation, non-tender, No hepatosplenomegaly present, no masses and no bruits PALPATION: Yes Soft to palpation and Yes No hepatosplenomegaly present : BLADDER/KIDNEY EXAM: Yes CVA tenderness on the left Extremity: COMMON NORMALS: normal to inspection, full ROM, capillary refill normal, no calf tenderness and no pedal edema Neuro: COMMON NORMALS: patient oriented x3 SENSORIUM/ORIENTATION: Yes alert MENINGEAL SIGNS: Yes no meningeal signs Skin: COMMON NORMALS: no rashes or lesions noted, no wounds, turgor normal, no jaundice, no petechiae and no mottling GENERAL SKIN EXAM: no rashes or lesions noted and turgor normal Course Reevaluation(s): Reevaluation #1: Discussed her d-dimer findings with her. Discussed obtaining a CTA of her lungs because of her elevated D-dimer on chest pain. She agreed to have it done. I explained to her that involves IV contrast and she agreed Time: 14:34 Reevaluation #2: Discussed the CT findings with her. Negative for PE, she does have features consistent with pneumonitis, also has features that could be seen in patients with COVID-19. I advised on Covid testing and the patient declined. She refused the test and wanted to be discharged home. Time: 17:10 Vital Signs: Vital signs: Vital Signs Temperature 98.4 F 05/20/20 11:06 Pulse Rate 76 05/20/20 18:19 Respiratory Rate 16 05/20/20 18:19 Blood Pressure 150/76 05/20/20 18:19 Pulse Oximetry 95 05/20/20 18:19 MDM - Abdominal Pain MDM Narrative: Medical decision making narrative: 69-year-old female patient with nonspecific left upper quadrant/left lower rib pain. Symptoms have been ongoing for well and has been seen in this emergency department twice for the same thing. Evaluation was unremarkable other than some mild pneumonitis noted on the left. The patient declined Covid testing, she has declined other investigations each time she has been in the emergency department. She is discharged home with no new orders as her evaluation so far is unremarkable. She refused steroids which I suggested to see if it to help with the pneumonitis and without pain. Medical Records: Attestation: I reviewed the patient's medical records. Lab Data: Attestation: I reviewed the patient's lab results. Labs: Lab Results 05/20/20 05/20/20 05/20/20 Range/Units 12:23 12:48 12:48 WBC 4.3 (4.0-10.0) 10^3/ uL RBC 4.41 (4.1-5.3) 10^6/u L Hgb 12.7 (11.5-15.3) g/dL Hct 39.6 (37.0-47.0) % MCV 89.8 (81-99) fL MCH 28.8 (28.0-34.0) pg MCHC 32.1 (30.0-36.0) g/dL RDW 13.9 (12.1-15.1) % Plt Count 205 (130-400) 10^3/c mm MPV 9.2 (7.4-10.4) fL Neut % (Auto) 61.6 % Lymph % (Auto) 24.1 % [place] % (Auto) 13.6 % Eos % (Auto) 0.0 % Baso % (Auto) 0.2 % Neut # (Auto) 2.63 (1.8-7.7) 10^3/u L Lymph # (Auto) 1.0 (0.8-4.8) 10^3/u L [place] # (Auto) 0.6 (0.2-0.9) 10^3/u L Eos # (Auto) 0.0 (0.0-0.8) 10^3/u L Baso # (Auto) 0.0 (0.0-0.1) 10^3/u L Nucleated RBC % (a uto) 0 % Nucleated RBCs # 0.0 /100WBC D-Dimer (0-0.59) ug/mIFE U Sodium 136 (136-145) mmol/L Potassium 4.7 (3.5-5.1) mmol/L Chloride 99 (98-107) mmol/L Carbon Dioxide 26 (22-29) mmol/L Anion Gap 15.7 (5-19) BUN 14 (8-23) mg/dL Creatinine 0.7 (0.5-0.9) mg/dL GFR Calculation Not Reportable Glucose 92 (65-115) mg/dL Calculated Osmolal ity 282 L (285-295) mOsm/k g Calcium 9.1 (8.5-10.5) mg/dL Total Bilirubin 0.2 (0.15-1.2) mg/dL AST 32 (0-32) U/L ALT 40 H (0-33) U/L Alkaline Phosphata se 139 H (35-105) IU/L Creatine Kinase 120 (26-192) U/L Troponin T Baselin e (0-10) ng/L Troponin T 120 Min lewis (0-10) ng/L Delta Troponin T (0-10) ABS# C-Reactive Protein 5.5 H (0.0-4.9) mg/L Total Protein 6.7 (6.6-8.7) g/dL Albumin 4.2 (3.5-5.2) g/dL Globulin 2.5 (1.3-4.6) g/dL Lipase 59 (13-60) U/L Procalcitonin 0.05 (0-0.5) ng/mL Urine Color Yellow (Yellow) Urine Appearance Clear (CLEAR) Urine pH 5 (5-7) Ur Specific Gravit y 1.020 (1.005-1.030) Urine Protein Neg (Negative) Urine Glucose (UA) Norm (Normal) Urine Ketones 2+ H (Negative) Urine Blood Neg (Negative) Urine Nitrate Negative (Negative) Urine Bilirubin Neg (Negative) Urine Urobilinogen 1 H (Negative) mg/dL Ur Leukocyte [place] ase Trace H (Negative) Urine RBC 0-4 H (0-2) /hpf Urine WBC 5-10 H (0-5) /hpf Ur Squamous Epith Cells 0-4 H (0-5) /hpf Amorphous Sediment Not Reportable Urine Bacteria 1+ H (NONE) /hpf Urine Mucus 3+ /hpf 05/20/20 05/20/20 05/20/20 Range/Units 12:48 12:48 15:37 WBC (4.0-10.0) 10^3/ uL RBC (4.1-5.3) 10^6/u L Hgb (11.5-15.3) g/dL Hct (37.0-47.0) % MCV (81-99) fL MCH (28.0-34.0) pg MCHC (30.0-36.0) g/dL RDW (12.1-15.1) % Plt Count (130-400) 10^3/c mm MPV (7.4-10.4) fL Neut % (Auto) % Lymph % (Auto) % [place] % (Auto) % Eos % (Auto) % Baso % (Auto) % Neut # (Auto) (1.8-7.7) 10^3/u L Lymph # (Auto) (0.8-4.8) 10^3/u L [place] # (Auto) (0.2-0.9) 10^3/u L Eos # (Auto) (0.0-0.8) 10^3/u L Baso # (Auto) (0.0-0.1) 10^3/u L Nucleated RBC % (a uto) % Nucleated RBCs # /100WBC D-Dimer 0.72 H (0-0.59) ug/mIFE U Sodium (136-145) mmol/L Potassium (3.5-5.1) mmol/L Chloride (98-107) mmol/L Carbon Dioxide (22-29) mmol/L Anion Gap (5-19) BUN (8-23) mg/dL Creatinine (0.5-0.9) mg/dL GFR Calculation Glucose (65-115) mg/dL Calculated Osmolal ity (285-295) mOsm/k g Calcium (8.5-10.5) mg/dL Total Bilirubin (0.15-1.2) mg/dL AST (0-32) U/L ALT (0-33) U/L Alkaline Phosphata se (35-105) IU/L Creatine Kinase (26-192) U/L Troponin T Baselin e 16 H (0-10) ng/L Troponin T 120 Min lewis 15.19 H (0-10) ng/L Delta Troponin T -0.81 L (0-10) ABS# C-Reactive Protein (0.0-4.9) mg/L Total Protein (6.6-8.7) g/dL Albumin (3.5-5.2) g/dL Globulin (1.3-4.6) g/dL Lipase (13-60) U/L Procalcitonin (0-0.5) ng/mL Urine Color (Yellow) Urine Appearance (CLEAR) Urine pH (5-7) Ur Specific Gravit y (1.005-1.030) Urine Protein (Negative) Urine Glucose (UA) (Normal) Urine Ketones (Negative) Urine Blood (Negative) Urine Nitrate (Negative) Urine Bilirubin (Negative) Urine Urobilinogen (Negative) mg/dL Ur Leukocyte [place] ase (Negative) Urine RBC (0-2) /hpf Urine WBC (0-5) /hpf Ur Squamous Epith Cells (0-5) /hpf Amorphous Sediment Urine Bacteria (NONE) /hpf Urine Mucus /hpf Imaging Data ^: CTA Chest: Radiologist's impression: [address] [place] [address] CT Scan Report Signed Patient: Lorraine Ko #: [id number] : 1951Acct#:[id number] Age/Sex: 69 / FADM Date: 05/20/20 Loc: [facility]oom/Bed: Attending Dr: Ordering Provider/Ordering MD: Krishna oCrtés MD, [facility] [place] Date of Service: 05/20/20 Procedure(s): CT angio chest w abd pel w con Accession Number(s): [id number] Report Number: [id number] WS: [id number] CTA CHEST WITH CT ABDOMEN AND PELVIS. HISTORY: Left-sided chest pain. Abdominal pain. TECHNIQUE: CT angiogram is performed through the chest. Additional imaging is performed through the abdomen and pelvis with IV contrast. Sagittal and coronal reformats have been submitted. MIP imaging also reviewed. All CT scans at [facility] use at least one of these dose optimization techniques: automated exposure control; mA and/or kV adjustment per patient size (includes targeted exams where dose is matched to clinical indication); or iterative reconstruction. Contrast: Omnipaque 300; 95 cc IV. DLP: 1208.25 mGy.cm COMPARISON: 05/19/2020 and 05/11/2020. Chest CTA: Adequate opacification of the pulmonary arteries. No pulmonary embolism. Pulmonary artery size is equal to the aorta. Atherosclerotic plaque and intimal thickening throughout the thoracic aorta. No aneurysm. No pericardial or pleural effusions. Mediastinal and hilar prominent lymph nodes. The largest lymph node at the AP window measures 1.6 cm. Bilateral mildly prominent lymph nodes less than a centimeter. Thickening of the distal esophagus. Bilateral areas of groundglass attenuation in the wedge-shaped and peripheral distribution noted bilaterally but greatest in the LEFT upper lobe. Abdomen CT: Liver, spleen, gallbladder, pancreas and adrenal glands are negative. No renal obstruction. Normal enhancement of the kidneys. Mild atherosclerosis aorta. The appendix is not definitely visualized. No free fluid or free air. No GI tract obstruction. Calcification in the LEFT abdomen is not definitely within the ureter. Pelvic CT: No free fluid in the pelvis. Well-distended urinary bladder. T12 anterior compression fracture by 20% is not new. Additional compression fractures at T8 and T9. There is increased sclerosis in several of the vertebral bodies. Compression fracture at T9 has increased. CT/CT angio chest w abd pel w con IMPRESSION: 1. No pulmonary embolism. 2. Wedge-shaped areas of groundglass lung attenuation bilaterally but greatest in the LEFT upper lobe. Favor pneumonitis. Correlate for possible Covid 19. These changes can be seen with small airways disease or small peripheral PE. 3. Indeterminate but mildly prominent aortopulmonary lymph node. 4. Increased soft tissue at the GE junction. Hiatal hernia within the differential. 5. Age-indeterminate compression fracture at T9. Additional compression fractures at T8 and T12. Dictated By:Bethanie Manriquez DO Signed By:Bethanie Manriquez DOSigned Date/Time:05/20/20 1530 DD/ 1503 Other Xray: Radiologist's impression: [address] [address] XRay Report Signed Patient: Lorraine Ko #: [id number] : 9Acct#:[id number] Age/Sex: 69 / FADM Date: 05/20/20 Loc: [facility]/Bed: Attending Dr: Ordering Provider/Ordering MD: Krishna Cortés MD, [facility] [place] Date of Service: 05/20/20 Procedure(s): XR ribs LT mn 3V w CXR1V 49380 Accession Number(s): [id number] Report Number: [id number] WS: [id number] LEFT RIBS, MULTIPLE VIEWS WITH PA CHEST HISTORY: lower rib pain COMPARISON: None. Lungs and mediastinum: Well aerated. No pneumothorax or pulmonary contusion. Ribs: No rib fractures or bone destruction identified. Mild reverse S-shaped curvature thoracolumbar spine. XR/XR ribs LT mn 3V w CXR1V 54569 IMPRESSION: No LEFT rib fractures identified. Dictated By:Bethanie Manriquez DO Signed By:Bethanie Manriquez DOSigned Date/Time:05/20/20 1235 DD/ 1234 EKG Data ^: EKG 1: Attestation: I personally reviewed and interpreted this EKG as follows: EKG interpretation date: 05/20/20 EKG interpretation time: 12:46 Prior EKG tracings: not available for review Interpretation: Normal sinus rhythm. Heart rate 72 bpm. Normal axis. No ST changes. EKG 2: Attestation: I personally reviewed and interpreted this EKG as follows: EKG interpretation date: 05/20/20 EKG interpretation time: 14:20 Prior EKG tracings: available for review Interpretation: Normal sinus rhythm. Heart rate [address] changes. Normal axis. Discharge Plan Discharge Patient Disposition: Home Clinical Impression: Rib pain on left side, Pneumonitis Condition: Stable Prescriptions: Continued tramadol 50 mg tablet 50 mg PO BID PRN (Reason: pain) Qty: 40 RF: 0 polyethylene glycol 3350 [Miralax] 17 gram/dose powder 17 g PO DAILY PRN (Reason: constipation) Qty: 119 RF: 0 alendronate 70 mg tablet 70 mg PO Q7D RF: 0 acetaminophen [Tylenol Extra Strength] 500 mg Tablet 500 mg PO Q4H PRN (Reason: Pain) RF: 0 Caltrate 600 plus D 600 mg (1,500 mg)-800 unit Tablet,Chewable 1 tab PO DAILY@18 RF: 0 levothyroxine [Synthroid] 100 mcg tablet 100 mcg PO DAILY@09 RF: 0 fexofenadine-pseudoephedrine [Jade-D 12 Hour] 60-120 mg tablet extended release 12 hr 1 tab PO DAILY PRN (Reason: allergies) RF: 0 esomeprazole magnesium [Nexium] 20 mg Capsule,Delayed Release(Dr/Ec) 20 mg PO DAILY PRN (Reason: Heartburn) RF: 0 Discharge Orders: Discharge ED (Routine); Ordered 05/20/20 Ordered By: Krishna Cortés Referrals: Eugene Arce [Primary Care Provider] - 1-3 days Discharge Diet: Usual diet Discharge Activity: Increase activity as tolerated Patient Instructions: Chest Pain - Chest Wall Activity Restrictions/Additional Instructions: Return for any new or worsening symptoms. Follow-up with your primary care provider within 3 days. Take the medications that were prescribed to you as prescribed. Coding Level of Care Code ED [place] for Chg Fwd Exam Comprehensive
--- NOTE | 2020-05-20 12:21 | ECG_ITS ---
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
[2020-05-20 13:00] LABS: Glucose Urine UA Norm (Normal); Ketones Urine 2+ (Negative); Protein Urine Neg (Negative); Urine Appearance Clear (CLEAR); Urine Color Yellow (Yellow); pH Urine 5 (5-7)
[2020-05-20 13:01] LABS: Add Urine Microscopic? YES; Bacteria Urine 1+ /hpf; Bilirubin Urine Neg (Negative); Blood Urine Neg (Negative); Leukocyte Esterase Urine Trace (Negative); Mucus Urine 3+ /hpf; Nitrate Urine Negative (Negative); RBC Urine 0-4 /hpf (0-2); Squamous Epithelial Cell Urine 0-4 /hpf (0-5); Urobilinogen Urine 1 mg/dL (Negative)
[2020-05-20 13:03] LABS: Basophils % 0.2 %; Hematocrit 39.6 % (37.0-47.0); Hemoglobin 12.7 g/dL (11.5-15.3); Lymphocytes % 24.1 %; Mean Corpuscular HGB Conc 32.1 g/dL (30.0-36.0); Mean Corpuscular Hemoglobin 28.8 pg (28.0-34.0); Mean Corpuscular Volume 89.8 fL (81-99); Mean Platelet Volume 9.2 fL (7.4-10.4); Monocytes # 0.6 10^3/uL (0.2-0.9); Monocytes % 13.6 %; Neutrophils # 2.63 10^3/uL (1.8-7.7); Neutrophils % 61.6 %; Nucleated Red Blood Cells % 0 %; Platelet Count 205 10^3/cmm (130-400); Red Blood Count 4.41 10^6/uL (4.1-5.3); Red Cell Distribution Width 13.9 % (12.1-15.1); White Blood Count 4.3 10^3/uL (4.0-10.0)
[2020-05-20 13:22] LABS: D Dimer 0.72 ug/mIFEU (0-0.59)
[2020-05-20 13:25] LABS: Troponin(5th) Baseline 16 ng/L (0-10)
[2020-05-20 13:34] LABS: Procalcitonin 0.05 ng/mL (0-0.5)
[2020-05-20 13:47] LABS: Alanine Aminotransferase 40 U/L (0-33); Albumin Level 4.2 g/dL (3.5-5.2); Alkaline Phosphatase 139 IU/L (35-105); Anion Gap 15.7 (5-19); Aspartate Amino Transferase 32 U/L (0-32); Blood Urea Nitrogen 14 mg/dL (8-23); C Reactive Protein 5.5 mg/L (0.0-4.9); Calcium 9.1 mg/dL (8.5-10.5); Carbon Dioxide 26 mmol/L (22-29); Chloride 99 mmol/L (98-107); Creatine Phosphokinase 120 U/L (26-192); Globulin 2.5 g/dL (1.3-4.6); Glucose 92 mg/dL (65-115); Lipase 59 U/L (13-60); Osmolality Calculated 282 mOsm/kg (285-295); Potassium 4.7 mmol/L (3.5-5.1); Sodium 136 mmol/L (136-145); Total Bilirubin 0.2 mg/dL (0.15-1.2); Total Protein 6.7 g/dL (6.6-8.7)
--- NOTE | 2020-05-20 14:21 | ECG_ITS ---
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
--- NOTE | 2020-05-20 14:34 | CT_ITS ---
WS: [id number] CTA CHEST WITH CT ABDOMEN AND PELVIS. HISTORY: Left-sided chest pain. Abdominal pain. TECHNIQUE: CT angiogram is performed through the chest. Additional imaging is performed through the a bdomen and pelvis with IV contrast. Sagittal and coronal reformats have been submitted. MIP imaging also reviewed. All CT scans at [facility] use at least one of these dose optimization tech niques: automated exposure control; mA and/or kV adjustment per patient size (includes targeted exams where dose is matched to clinical indication); or iterative reconstruction. Contrast: Omnipaque 300; 95 cc IV. DLP: 1208.25 mGy.cm COMPARISON: 05/19/2020 and 05/11/2020. Chest CTA: Adequate opacification of the pulmonary arteries. No pulmonary embolism. Pulmonary artery size is equal to the aorta. Atherosclerotic plaque and intimal thickening throughout the thoracic aor ta. No aneurysm. No pericardial or pleural effusions. Mediastinal and hilar prominent lymph nodes. Th e largest lymph node at the AP window measures 1.6 cm. Bilateral mildly prominent lymph nodes less th an a centimeter. Thickening of the distal esophagus. Bilateral areas of groundglass attenuation in the wedge-shaped and peripheral distribution noted bila terally but greatest in the LEFT upper lobe. Abdomen CT: Liver, spleen, gallbladder, pancreas and adrenal glands are negative. No renal obstructio n. Normal enhancement of the kidneys. Mild atherosclerosis aorta. The appendix is not definitely visu alized. No free fluid or free air. No GI tract obstruction. Calcification in the LEFT abdomen is not definitely within the ureter. Pelvic CT: No free fluid in the pelvis. Well-distended urinary bladder. T12 anterior compression fracture by 20% is not new. Additional compression fractures at T8 and T9. T here is increased sclerosis in several of the vertebral bodies. Compression fracture at T9 has increa sed. CT/CT angio chest w abd pel w con IMPRESSION: 1. No pulmonary embolism. 2. Wedge-shaped areas of groundglass lung attenuation bilaterally but greatest in the LEFT upper lobe. Favor pneumonitis. Correlate for possible Covid 19. Th alysha changes can be seen with small airways disease or small peripheral PE. 3. Indeterminate but mildly prominent aortopulmonary lymph node. 4. Increased soft tissue at the GE junction. Hiatal hernia within the differen tial. 5. Age-indeterminate compression fracture at T9. Additional compression fractu res at T8 and T12.
[2020-05-20] MEDS: iohexol 350 mg/mL 100 mL Btl IV (14:57)
[2020-05-20 16:11] LABS: Troponin 5 2HR 15.19 ng/L (0-10)
[2020-05-20 16:15] LABS: Troponin 5 2HR Delta -0.81 ABS# (0-10)
--- NOTE | 2020-05-20 17:23 | PC.NURSE ---
pt refused covid swabs
== END 2020-05-20 18:21 | disposition home or self-care (01) ==
PROVIDERS: Emergency Provider Family Medicine; PCP Family Medicine
DX: J18.9 Pneumonia, unspecified organism (principal); R07.81 Pleurodynia
CPT/HCPCS: 12345; 36415; 71101; 71275; 74177; 80053; 81001; 82550; 83690; 84145; 84484; 85025; 85378; 86140; 93005; 99283; 99284; Q9967

== ENCOUNTER → 2020-10-22 15:00 | Outpatient (BNVA) | payer MEDICAID, SELFPAY | PROVIDERS: PCP Family Medicine; Visit Provider Nurse Practitioner Family | DX: E03.9 Hypothyroidism, unspecified (principal) | CPT/HCPCS: 80053; 83036; 84443; 85025 ==

== ENCOUNTER → 2020-11-27 13:57 | Outpatient (BNVA) | payer MEDICAID, SELFPAY | PROVIDERS: PCP Family Medicine; Visit Provider Orthopaedic Surgery | DX: M54.9 Dorsalgia, unspecified (principal); M81.0 Age-related osteoporosis without current pathological fracture | CPT/HCPCS: 72110 ==

== ENCOUNTER → 2021-02-03 10:50 | Outpatient (BNVA) | payer MEDICAID, SELFPAY | PROVIDERS: PCP Family Medicine; Visit Provider Internal Medicine | DX: Z20.822 Contact with and (suspected) exposure to COVID-19 (principal); R10.9 Unspecified abdominal pain | CPT/HCPCS: 87635 ==

== ENCOUNTER 2021-07-22 14:49 | Emergency (ER) | payer MEDICAID, SELFPAY ==
[2021-07-22 14:56] VITALS: BP 151/88; PULSE 73; RESP 16; TEMP 36.6; O2SAT 96
--- NOTE | 2021-07-22 15:14 | XR_ITS ---
WS: [id number] Thoracic spine, 3 views, 07/22/2021 Clinical Data: Mid back pain Comparison: Thoracic spine, 04/04/2020. Findings: The T12 compression fracture is better seen on the lateral view than before. There is further loss of height up to 50% of the anterior and central portions of the T12 compression fracture. The T9 compre ssion fracture remains the same. There is a levoscoliosis of the thoracic spine. The paravertebral regions are normal. XR/XR thoracic spine 3V* 49951 Impression: 1. Further loss of height of the T12 vertebral body. 2. No change in loss of height of T9 vertebral body.
--- NOTE | 2021-07-22 15:43 | W.ED.BACK ---
Documented by User: JARED Wright 07/22/21 16:53 HPI - Back Pain/Injury General: Chief Complaint: Back Pain/Injury Stated Complaint: Back Pain Time Seen by Provider: 07/22/21 15:14 History of Present Illness: Patient is a 70-year-old female comes to the ED with back pain. Past medical history of osteoporosis, scoliosis and has fractures of her T12 and T9. Denies any injury fall or trauma to cause acute back pain. Patient reports feeling back pain in the mid back region. She rates her pain a 9 out of 10 currently. Pain improves when standing. Pain worsens if she is sitting. Denies any cauda equina symptoms. Patient is currently being seen by Dr. Portillo and he is trying to get her set up for an MRI. Associated symptoms: Deny abdominal pain, chills, dysuria, fatigue, fever(s), hematuria, nausea or vomiting Review of Systems Const: Denies: fever(s), chills or fatigue Eyes: Denies: change in vision or eye discomfort ENMT: Denies: throat pain, odynophagia, nasal discharge or nasal congestion Card: Denies: chest pain, palpitations, edema, swelling of feet/ankles, dyspnea on exertion or orthopnea Resp: Denies: dyspnea, productive cough or non-productive cough GI: Denies: abdominal pain, nausea, vomiting, diarrhea, constipation or hematochezia : Denies: flank pain, dysuria or hematuria Musc: Reports: back pain; Denies: neck pain or extremity swelling Skin/Breast: Denies: rash or new lesions Neuro: Denies: headache(s), numbness in extremities or weakness in extremities [facility] ED PFSH: Medical History Acid reflux History of COVID-19 History of fractured vertebra Osteoarthritis Surgical History S/P hysterectomy Family History Father Stroke Social History Smoking and tobacco status: never smoked Alcohol intake: never Lives independently: Yes Marital status: / Physical Exam Const: COMMON NORMALS: no acute distress, patient oriented x3 and alert GENERAL APPEARANCE: cooperative HENMT: COMMON NORMALS: normocephalic HEAD & SCALP: normocephalic MOUTH: Normal oral and palatal mucosa present THROAT: posterior oropharynx normal and uvula midline Neck/C-Spine: COMMON NORMALS: supple GENERAL: Yes normal visual inspection Resp: COMMON NORMALS: normal respiratory effort, No retractions, No use of accessory muscles and clear to auscultation bilaterally AUSCULTATION: clear to auscultation bilaterally Cardio: COMMON NORMALS: regular rate, regular rhythm, S1 normal heart sound present, S2 normal heart sound present, No gallops present (Cardio), No clicks present (Cardio), No murmurs present (Cardio) and Peripheral pulses 2+ throughout RATE: regular rate RHYTHM: regular rhythm HEART SOUNDS: S1 normal heart sound present and S2 normal heart sound present PERIPHERAL PULSES: Peripheral pulses 2+ throughout GI: COMMON NORMALS: Normal to inspection, nondistended, normoactive bowel sounds present, Soft to palpation, non-tender and no masses PALPATION: Yes Soft to palpation : COMMON NORMALS: Yes no CVA tenderness BLADDER/KIDNEY EXAM: Yes no CVA tenderness Back/Pelvis: COMMON NORMALS: no CVA tenderness Extremity: COMMON NORMALS: normal to inspection Neuro: COMMON NORMALS: patient oriented x3 and moves all extremities SENSORIUM/ORIENTATION: Yes alert Skin: GENERAL SKIN EXAM: dry skin Course Vital Signs: Vital signs: Vital Signs Temperature 97.8 F 07/22/21 14:56 Pulse Rate 73 07/22/21 14:56 Respiratory Rate 16 07/22/21 14:56 Blood Pressure 151/88 07/22/21 14:56 Pulse Oximetry 96 07/22/21 14:56 MDM - Back Pain/Injury Medical Decision Making Patient is a 70-year-old female comes to the ED with back pain. Patient has a history of thoracic spine fractures, osteoporosis and scoliosis. She is currently seen by Dr. Portillo and he is trying to get her set up for an MRI. Denies any injury or trauma to cause acute pain. Vitals are stable. X-ray of thoracic spine shows further loss of height on T12 vertebrae. Patient diagnosed with a thoracolumbar vertebral compression fracture and was discharged home in a TLSO brace. I placed order with case management for patient to get sooner follow-up with Dr. Portillo. Patient was sent home with a prescription for ketorolac to help with pain. Return to ED precautions given. Patient understood and agree with plan. Labs Radiology Impressions Thoracic Spine X-Ray 07/22/21 15:14 Impression: 1. Further loss of height of the T12 vertebral body. 2. No change in loss of height of T9 vertebral body. Discharge Plan Discharge Patient Disposition: Home Clinical Impression: Compression fracture of thoracolumbar vertebra Qualifiers: Encounter type: initial encounter Fracture type: closed Qualified Code(s): S22.080A - Wedge compression fracture of T11-T12 vertebra, initial encounter for closed fracture Condition: Stable Prescriptions: New ketorolac 10 mg tablet 10 mg PO Q6H PRN (Reason: pain) 5 Days Qty: 21 0RF Rx Instructions: First p.o. dose can be 20 mg. After that 10 mg p.o. every 6 hours as needed pain. No Action fluticasone propionate 50 mcg/actuation spray,suspension 2 spray intranasal DAILY 7 Days Qty: 16 0RF Rx Instructions: administer into each nostril cephalexin 500 mg capsule 500 mg PO BID 7 Days Qty: 14 0RF cephalexin 500 mg capsule 500 mg PO BID 7 Days Qty: 14 0RF mupirocin 2 % ointment 1 applic topical BID 14 Days Qty: 22 0RF hydrocodone-acetaminophen 5-325 mg tablet 1 tab PO Q6H PRN (Reason: pain) 7 Days Qty: 20 0RF zphcakof-eezsiatfz-RH 3.5-10,000-1 mg/mL-unit/mL-% drops,suspension 4 drp otic (ear) Q8H 7 Days Qty: 10 0RF levothyroxine [Synthroid] 100 mcg tablet 100 mcg PO DAILY@09 Qty: 90 3RF fexofenadine-pseudoephedrine [Jade-D 12 Hour] 60-120 mg tablet extended release 12 hr 1 tab PO DAILY PRN (Reason: allergies) Qty: 30 0RF Caltrate 600 plus D 600 mg (1,500 mg)-800 unit Tablet,Chewable 1 tab PO DAILY@18 0RF esomeprazole magnesium [Nexium] 20 mg Capsule,Delayed Release(Dr/Ec) 20 mg PO DAILY PRN (Reason: Heartburn) 0RF Discharge Orders: Discharge ED (Routine); Ordered 07/22/21 Ordered By: Neel Etienne Referrals: Michael Banerjee MD [Primary Care Provider] - Discharge Diet: Regular Discharge Activity: Increase activity as tolerated Patient Instructions: Vertebral Compression Fracture (ED) Activity Restrictions/Additional Instructions: Follow-up with medical provider as directed. Case management should be contacting you to get an appointment set up with Dr. Lindsey church for evaluation. Wear TLSO brace. take medications as prescribed. Return to the ER or your medical provider if condition worsens. Please read and understand discharge instructions. Thank you for choosing [facility] for your healthcare needs today. Please realize this is an emergency room and that we are providing you with a medical screening exam and this may not be complete and all inclusive of all the testing and or work up that you may need to determine your ailment or severity of your illness. It is very important that you follow up as instructed or that you return to the Emergency Department should you have concerns or if your condition changes or worsens in any way. Coding Level of Care Code ED Mason Foreman/Superintendant for Chg Fwd Exam Comprehensive Documented by User: Abdoulaye Heredia DO 07/23/21 06:33 HPI - Back Pain/Injury General: Chief Complaint: Back Pain/Injury Stated Complaint: Back Pain Time Seen by Provider: 07/22/21 15:14 [facility] ED PFSH: Medical History Acid reflux History of COVID-19 History of fractured vertebra Osteoarthritis Surgical History S/P hysterectomy Family History Father Stroke Social History Smoking and tobacco status: never smoked Alcohol intake: never Lives independently: Yes Marital status: / Course Vital Signs: Vital signs: Vital Signs Temperature 97.8 F 07/22/21 14:56 Pulse Rate 73 07/22/21 14:56 Respiratory Rate 16 07/22/21 14:56 Blood Pressure 151/88 07/22/21 14:56 Pulse Oximetry 96 07/22/21 14:56 MDM - Back Pain/Injury Medical Decision Making Patient is a 70-year-old female comes to the ED with back pain. Patient has a history of thoracic spine fractures, osteoporosis and scoliosis. She is currently seen by Dr. Portillo and he is trying to get her set up for an MRI. Denies any injury or trauma to cause acute pain. Vitals are stable. X-ray of thoracic spine shows further loss of height on T12 vertebrae. Patient diagnosed with a thoracolumbar vertebral compression fracture and was discharged home in a TLSO brace. I placed order with case management for patient to get sooner follow-up with Dr. Portillo. Patient was sent home with a prescription for ketorolac to help with pain. Return to ED precautions given. Patient understood and agree with plan. Chart reviewed and patient discussed with midlevel. Agree with assessment and plan. Labs Radiology Impressions Thoracic Spine X-Ray 07/22/21 15:14 Impression: 1. Further loss of height of the T12 vertebral body. 2. No change in loss of height of T9 vertebral body. Discharge Plan Discharge Patient Disposition: Home Clinical Impression: Compression fracture of thoracolumbar vertebra Qualifiers: Encounter type: initial encounter Fracture type: closed Qualified Code(s): S22.080A - Wedge compression fracture of T11-T12 vertebra, initial encounter for closed fracture Condition: Stable Prescriptions: New ketorolac 10 mg tablet 10 mg PO Q6H PRN (Reason: pain) 5 Days Qty: 21 0RF Rx Instructions: First p.o. dose can be 20 mg. After that 10 mg p.o. every 6 hours as needed pain. No Action fluticasone propionate 50 mcg/actuation spray,suspension 2 spray intranasal DAILY 7 Days Qty: 16 0RF Rx Instructions: administer into each nostril cephalexin 500 mg capsule 500 mg PO BID 7 Days Qty: 14 0RF cephalexin 500 mg capsule 500 mg PO BID 7 Days Qty: 14 0RF mupirocin 2 % ointment 1 applic topical BID 14 Days Qty: 22 0RF hydrocodone-acetaminophen 5-325 mg tablet 1 tab PO Q6H PRN (Reason: pain) 7 Days Qty: 20 0RF bkhccift-pdcvtvaxl-ON 3.5-10,000-1 mg/mL-unit/mL-% drops,suspension 4 drp otic (ear) Q8H 7 Days Qty: 10 0RF levothyroxine [Synthroid] 100 mcg tablet 100 mcg PO DAILY@09 Qty: 90 3RF fexofenadine-pseudoephedrine [Jade-D 12 Hour] 60-120 mg tablet extended release 12 hr 1 tab PO DAILY PRN (Reason: allergies) Qty: 30 0RF Caltrate 600 plus D 600 mg (1,500 mg)-800 unit Tablet,Chewable 1 tab PO DAILY@18 0RF esomeprazole magnesium [Nexium] 20 mg Capsule,Delayed Release(Dr/Ec) 20 mg PO DAILY PRN (Reason: Heartburn) 0RF Discharge Orders: Discharge ED (Routine); Ordered 07/22/21 Ordered By: Neel Etienne Referrals: Michael Banerjee MD [Primary Care Provider] - Discharge Diet: Regular Discharge Activity: Increase activity as tolerated Patient Instructions: Vertebral Compression Fracture (ED) Activity Restrictions/Additional Instructions: Follow-up with medical provider as directed. Case management should be contacting you to get an appointment set up with Dr. Portillo soonreal for evaluation. Wear TLSO brace. take medications as prescribed. Return to the ER or your medical provider if condition worsens. Please read and understand discharge instructions. Thank you for choosing [facility] for your healthcare needs today. Please realize this is an emergency room and that we are providing you with a medical screening exam and this may not be complete and all inclusive of all the testing and or work up that you may need to determine your ailment or severity of your illness. It is very important that you follow up as instructed or that you return to the Emergency Department should you have concerns or if your condition changes or worsens in any way. Coding Level of Care Code ED Mason Foreman/Superintendant for Ajay Bone Exam Comprehensive
[2021-07-22] MEDS: ketorolac 60 mg/2 mL INJ IM (16:30)
--- NOTE | 2021-07-27 09:23 | DCPLANNER ---
Addendum entered by Mary Kate Romero 08/05/21 14:26: Patient had a follow up appointment scheduled for 07.30.21 with ortho - patient did attend appointment. Addendum entered by Mary Kate Romero 07/28/21 05:39: Patient has a follow up appointment scheduled for July at 2:[address] Portillo. Clinic will call patient with appointment information. Original Note: parts department manager had message to schedule a follow up appointment for patient with ortho. parts department manager called the ortho clinic, spoke with Delilah, gave clinic patients information. parts department manager was told that patients information would be printed and reviewed. Clinic will call patient with appointment information.
== END 2021-07-22 16:52 | disposition home or self-care (01) ==
PROVIDERS: Emergency Provider Physician Assistant; PCP Internal Medicine
DX: S22.080A Wedge compression fracture of T11-T12 vertebra, initial encounter for closed fracture (principal); X58.XXXA Exposure to other specified factors, initial encounter
CPT/HCPCS: 72072; 96372; 97760; 99283; J1885; L0456

== ENCOUNTER 2021-07-30 06:20 | Outpatient (CLI) | payer MEDICAID, SELFPAY ==
--- NOTE | 2021-07-30 06:15 | USR_ITS ---
PROCEDURE INFORMATION: Exam: US Abdomen, Limited; Right Upper Quadrant Exam date and time: 07/30/2021 6:15 AM Age: 70 years old Clinical indication: Abdominal pain; Additional info: R14.0 - abdominal distension (gaseous), US gallbladder and liver TECHNIQUE: Imaging protocol: US abdomen. Real time ultrasound with image documentation. Limited exam focused on the right upper quadrant. COMPARISON: CT abdomen pelvis wo con [id number] 05/19/2020 3:09 PM FINDINGS: Liver: The liver is unremarkable and not enlarged. Gallbladder: The gallbladder is normal. Common bile duct: There is no biliary dilatation. Pancreas: Pancreas is not well seen due to overlying bowel gas. Right kidney: The right kidney is unremarkable. US/US gall bladder [id number] IMPRESSION: No acute abnormality.
== END 2021-07-30 06:21 | disposition home or self-care (01) ==
LOC: RAD 06:21
PROVIDERS: PCP Internal Medicine; Visit Provider Surgery
DX: R10.9 Unspecified abdominal pain (principal); R14.0 Abdominal distension (gaseous)
CPT/HCPCS: 76705

== ENCOUNTER → 2022-08-10 13:49 | Outpatient (BNVA) | payer MEDICAID, SELFPAY | PROVIDERS: Visit Provider Family Medicine Adult Medicine | DX: J30.81 Allergic rhinitis due to animal (cat) (dog) hair and dander (principal); Z87.81 Personal history of (healed) traumatic fracture; M19.90 Unspecified osteoarthritis, unspecified site; E03.9 Hypothyroidism, unspecified; K21.9 Gastro-esophageal reflux disease without esophagitis; M85.80 Other specified disorders of bone density and structure, unspecified site | CPT/HCPCS: 80053; 82785; 84443; 85025; 86003 ==

== ENCOUNTER → 2023-09-22 10:09 | Outpatient (BNVA) | payer MEDICAID, SELFPAY | PROVIDERS: PCP Family Medicine Adult Medicine; Visit Provider Family Medicine Adult Medicine | DX: E03.9 Hypothyroidism, unspecified (principal); J30.81 Allergic rhinitis due to animal (cat) (dog) hair and dander | CPT/HCPCS: 80053; 84443 ==

== ENCOUNTER 2024-04-23 07:08 | Emergency (ER) | payer SELFPAY ==
[2024-04-23] VITALS (8 sets, daily range): BP systolic 127–170; BP diastolic 76–102; PULSE 8–76; RESP 16–20; TEMP 36.8; O2SAT 91–99; BMI 28.9
--- NOTE | 2024-04-23 07:32 | ED_ITS ---
HPI - Dizziness 2 General: Chief Complaint: Dizziness Stated Complaint: dizzy & weak Time Seen by Provider: 04/23/24 07:18 History of Present Illness: HPI Narrative: 73-year-old female who presents to the e mergency room complaining of dizziness and weakness. Has been going on for the last 9 days she has been seen for was put on some antibiotics because they thought she had an ear infection. She states she completed those and it did not really seem to matter it was a 5-day course of Zithromax. She notes that whenever she bends over or if she lays down flat she gets severe vertiginous-like symptoms of sensation of spinning however when she is upright and moving walking around it does not bother her as much she can move her head to the left or right without any problems but when she lays down or bends over it has consistently stimulated her symptoms. No head trauma she is not on any anticoagulants the only medication she takes on a regular basis is a calcium supplement and levothyroxine. No fever sweats chills. No sinus congestion or drainage. After completing the antibiotics patient was advised to take antihistamine she has noticed that that has not helped either. Associated symptoms: Denies chest pain, chills or nasal congestion Related Data Home Medications Medication Instructions Recorded Confirmed azithromycin 500 mg tablet 500 mg PO .ZPAC 04/23/24 04/23/24 meclizine 25 mg tablet 25 mg PO TID PRN Nausea And 04/23/24 04/23/24 Vomiting Previous Rx's Medication Instructions Recorded levothyroxine 125 mcg tablet 125 mcg PO DAILY Low throid 12/20/23 (Synthroid) function #90 tabs lorazepam 1 mg tablet (Ativan) 1 mg PO Q6H PRN dizziness/vertigo 04/23/24 #14 tabs Allergies Allergy/AdvReac Type Severity Reaction Status Date / Time Penicillins Allergy Intermediate ADR-Diarrhe Verified 04/21/24 13:50 a codeine Allergy ADR-Nausea Verified 04/21/24 13:50 Sulfa (Sulfonamide Allergy Unknown Verified 04/21/24 13:50 Antibiotics) STEROIDS Allergy ADR-Headach Uncoded 04/21/24 13:50 e Review of Systems 2 Const: Denies: fever(s) or chills ENMT: Denies: throat pain, ear or mastoid pain, nasal discharge or nasal congestion Card: Denies: chest pain Resp: Denies: dyspnea GI: Denies: abdominal pain : Denies: dysuria, urinary frequency or urinary urgency Musc: Denies: neck pain or back pain Skin/Breast: Denies: rash PFSH ED 2 PFSH: Medical History Hypothyroidism Chronic GERD Allergic rhinitis due to animal (cat) (dog) hair and dander Osteopenia Onychodystrophy Abdominal pain History of fractured vertebra Compression Fx T8, T9, and T12 with increase in T12 last on 07/22/2021. Osteoarthritis Surgical History History of oophorectomy left 1985 S/P matrixectomy of toe S/P hysterectomy Family History Father Stroke Social History Smoking and tobacco/nicotine status: unknown if used tobacco/nicotine Alcohol intake: never Substance/Drug Use: never Lives independently: Yes Marital status: / Physical Exam 2 Const: COMMON NORMALS: no acute distress GENERAL APPEARANCE: cooperative and comfortable ORIENTATION/CONSCIOUSNESS: Yes awake, Yes oriented to person, Yes oriented to place and Yes oriented to time HENMT: COMMON NORMALS: normocephalic, atraumatic, hearing grossly normal bilaterally, external ears normal, EAC's normal, TM's normal bilaterally and Normal nasal mucous membranes and turbinates present HEAD & SCALP: n ormocephalic and atraumatic NOSE: Normal nasal mucous membranes and turbinates present EXTERNAL EAR: Yes external ears normal EXTERNAL AUDITORY CANAL: EAC's normal TYMPANIC MEMBRANE: TM's normal bilaterally Eye: COMMON NORMALS: Equal, round and reactive pupils present, EOMs intact bilaterally, conjunctivae normal and no scleral icterus CONJUNCTIVA: Yes conjunctivae normal PUPIL: Yes Equal, round and reactive pupils present Resp: COMMON NORMALS: normal respiratory effort, No retractions, No use of accessory muscles and clear to auscultation bilaterally AUSCULTATION: clear to auscultation bilaterally Cardio: COMMON NORMALS: regular rate, regular rhythm and No murmurs present (Cardio) RATE: regular rate RHYTHM: regular rhythm GI: COMMON NORMALS: Soft to palpation and No hepatosplenomegaly present A USCULTATION: Yes normoactive bowel sounds PALPATION: Yes Soft to palpation, No Tenderness to palpation present (GI), No Guarding due to palpation present (GI) and Yes No hepatosplenomegaly present Extremity: COMMON NORMALS: normal to inspection, capillary refill normal, no clubbing, cyanosis or edema, no calf tenderness and no pedal edema Neuro: SENSORIUM/ORIENTATION: Yes oriented to person, Yes oriented to place and Yes oriented to time Skin: COMMON NORMALS: no rashes or lesions noted GENERAL SKIN EXAM: no rashes or lesions noted Course 2 Vital Signs: Vital signs: Vital Signs Temperature 98.3 F 04/23/24 07:27 Pulse Rate 73 04/23/24 10:31 Respiratory Rate 20 H 04/23/24 10:31 Blood Pressure 133/84 04/23/24 10:31 Pulse Oximetry 99 04/23/24 10:31 Oxygen Delivery Me thod Room Air 04/23/24 07:27 MDM - Dizziness Medical Decision Making Patient's symptoms are very positional she is able to recreate them by lying down or by bending over. When she is sitting up they are actually much better interestingly if she moves her head while sitting up this load she is laid back or lean forward she has no further symptoms. Will refer to vestibular rehab prescription for Ativan as needed Lab Data 04/23/24 08:19 04/23/24 08:[address] 04/23/24 08:04 IMPRESSION: 1. No acute intracranial hemorrhage or edema. 2. Mild atrophy and mild small vessel ischemic type changes. 3. No posterior fossa acute abnormality. Laboratory Results WBC 5.96 10^3/uL (3.29-11.43) 04/23/24 08:19 RBC 4.79 10^6/uL (3.85-5.65) 04/23/24 08:19 Hgb 14.20 g/dL (11.27-16.99) 04/23/24 08:19 Hct 43.1 % (36-47) 04/23/24 08:19 MCV 90.0 fl (85-98) 04/23/24 08:19 MCH 29.6 pg (27-33) 04/23/24 08:19 MCHC 32.9 g/dL (30-55) 04/23/24 08:19 RDW 13.8 % (12.1-15.1) 04/23/24 08:19 Plt Count 312 10^3/cmm (157-399) 04/23/24 08:19 MPV 9.4 fL (7.4-10.4) 04/23/24 08:19 Neut % (Auto) 56.0 % 04/23/24 08:19 Lymph % (Auto) 29.0 % 04/23/24 08:19 [place] % (Auto) 10.4 % 04/23/24 08:19 Eos % (Auto) 2.9 % 04/23/24 08:19 Baso % (Auto) 1.5 % 04/23/24 08:19 Neut # (Auto) 3.34 10^3/uL (1.8-7.7) 04/23/24 08:19 Lymph # (Auto) 1.7 10^3/uL (0.8-4.8) 04/23/24 08:19 [place] # (Auto) 0.6 10^3/uL (0.2-0.9) 04/23/24 08:19 Eos # (Auto) 0.2 10^3/uL (0.0-0.8) 04/23/24 08:19 Baso # (Auto) 0.1 10^3/uL (0.0-0.1) 04/23/24 08:19 Nucleated RBC % (auto) 0 % 04/23/24 08:19 Nucleated RBCs # 0.0 /100WBC 04/23/24 08:19 Sodium 138 mmol/L (136-145) 04/23/24 08:19 Potassium 4.1 mmol/L (3.5-5.1) 04/23/24 08:19 Chloride 103 mmol/L (98-107) 04/23/24 08:19 Carbon Dioxide 25 mmol/L (22-29) 04/23/24 08:19 Anion Gap 14.1 (5-19) 04/23/24 08:19 BUN 16 mg/dL (8-23) 04/23/24 08:19 Creatinine 0.7 mg/dL (0.5-0.9) 04/23/24 08:19 GFR Calculation Not Reportable 04/23/24 08:19 Glucose 98 mg/dL (65-115) 04/23/24 08:19 Calculated Osmolality 287 mOsm/kg (285-295) 04/23/24 08:19 Calcium 9.4 mg/dL (8.5-10.5) 04/23/24 08:19 Total Bilirubin 0.2 mg/dL (0.15-1.2) 04/23/24 08:19 AST 22 U/L (0-32) 04/23/24 08:19 ALT 19 U/L (0-33) 04/23/24 08:19 Alkaline Phosphatase 124 U/L (35-105) H 04/23/24 08:19 Troponin T Baseline 9 ng/L (0-10) 04/23/24 08:19 Total Protein 7.8 g/dL (6.6-8.7) 04/23/24 08:19 Albumin 4.3 g/dL (3.5-5.2) 04/23/24 08:19 Globulin 3.5 g/dL (1.3-4.6) 04/23/24 08:19 Urine Color Yellow (Yellow) 04/23/24 08:03 Urine Appearance Clear (CLEAR) 04/23/24 08:03 Urine pH 6.0 (5-7) 04/23/24 08:03 Ur Specific [place] 1.014 (1.005-1.030) 04/23/24 08:03 Urine Protein Negative (Negative) 04/23/24 08:03 Urine Glucose (UA) Negative (Normal) 04/23/24 08:03 Urine Ketones Negative (Negative) 04/23/24 08:03 Urine Blood Negative (Negative) 04/23/24 08:03 Urine Nitrate Negative (Negative) 04/23/24 08:03 Urine Bilirubin Negative (Negative) 04/23/24 08:03 Urine Urobilinogen 0.2 mg/dL (Negative) 04/23/24 08:03 Ur Leukocyte Esterase 1+ (Negative) A 04/23/24 08:03 Urine RBC 0-4 /hpf (0-2) H 04/23/24 08:03 Urine WBC 5-10 /hpf (0-5) H 04/23/24 08:03 Ur Squamous Epith Cells 0-4 /hpf (0-5) H 04/23/24 08:03 Ur Transition Epith Cell 0-4 /hpf 04/23/24 08:03 Amorphous Sediment Not Reportable 04/23/24 08:03 Urine Bacteria None /hpf (NONE) 04/23/24 08:03 Urine Mucus Trace /hpf 04/23/24 08:03 All radiology interpretation(s) finalized by discharge Discharge Plan Discharge Patient Disposition: Home Clinical Impression: Benign paroxysmal positional vertigo Condition: Stable Prescriptions: New lorazepam [Ativan] 1 mg tablet 1 mg PO Q6H PRN (Reason: dizziness/vertigo) Qty: 14 0RF No Action levothyroxine [Synthroid] 125 mcg tablet 125 mcg PO DAILY Qty: 90 3RF meclizine 25 mg tablet 25 mg PO TID PRN (Reason: Nausea And Vomiting) azithromycin 500 mg tablet 500 mg PO .[facility] Discharge Orders: Discharge ED (Routine); Ordered 04/23/24 Ordered By: Abdoulaye Heredia Referrals: Clifton Santiago MD [Primary Care Provider] - Discharge Diet: Usual diet Discharge Activity: Increase activity as tolerated Patient Instructions: Benign Paroxysmal Positional Vertigo (ED), Opioid Safety, Pain Management Activity Restrictions/Additional Instructions: Thank you for choosing [facility] for your healthcare needs today. It is very important that you follow up as instructed or that you return to the Emergency Department should you have concerns or if your condition changes or worsens in any way. You were seen in the emergency room for dizziness that is very positional in nature. This is usually caused by an inner ear issue. He had previously tried the meclizine. You can continue to try that if that does not help use the Ativan that you are prescribed today. Case management will make arrangements for you to be seen in physical therapy for vestibular rehab Coding Level of Care Code ED Roll Winder for Ajay Bone
--- NOTE | 2024-04-23 07:36 | ECG_ITS ---
[facility] Date: 2024-04-23 Pat Name: Lorraine Ko Department: Room: Gender: Female Ethnographer: : 1950 Requested By: Abdoulaye Morfin Order Number: [id number] Reading MD: JONO MOTLEY Measurements Intervals [place] Rate: 69 P: 3 DC: 156 QRS: -25 QRSD: 93 T: 11 QT: 383 QTc: 412 Interpretive Statements SINUS RHYTHM BORDERLINE LEFT AXIS DEVIATION [QRS AXIS < -20] LOW QRS VOLTAGE IN PRECORDIAL LEADS [QRS DEFLECTION < 1.0 mV IN CHEST LEADS] Compared to ECG 05/20/2020 14:19:54 Low QRS voltage now present Electronically Signed On 04-23-2024 16:07:28 METEOROLOGIST LIAISON by JONO MOTLEY [email or web address]
--- NOTE | 2024-04-23 08:04 | CT_ITS ---
WS: [id number] CT HEAD NONCONTRAST HISTORY: Persistent dizziness, 9 days. TECHNIQUE: Contiguous axial imaging performed through the brain. Bone and soft tissue windows. Sagitt al and coronal reformats reviewed. All CT scans at [facility] use at least one of these dose optimization techniques: automated exposure control; mA and/or kV adjustment per patient size (includ es targeted exams where dose is matched to clinical indication); or iterative reconstruction. DLP: 1042.57 mGy.cm COMPARISON: None available. No acute intracranial hemorrhage, midline shift or mass effect. Mild atrophy and mild small vessel ischemic changes of white matter. Ventricles: Normal size with no hydrocephalus. No inferior displacement of the cerebellar tonsils. Clivus and pituitary gland negative. Paranasal sinuses: As visualized are clear. Mastoid air cells: Well pneumatized. Calvarium and scalp: Skull is intact with no soft tissue edema or swelling. CT/CT head wo con* [id number] IMPRESSION: 1. No acute intracranial hemorrhage or edema. 2. Mild atrophy and mild small vessel ischemic type changes. 3. No posterior fossa acute abnormality.
[2024-04-23 08:31] LABS: Basophils # 0.1 10^3/uL (0.0-0.1); Basophils % 1.5 %; Eosinophils # 0.2 10^3/uL (0.0-0.8); Eosinophils % 2.9 %; Hematocrit 43.1 % (36-47); Lymphocytes # 1.7 10^3/uL (0.8-4.8); Mean Corpuscular HGB Conc 32.9 g/dL (30-55); Mean Corpuscular Hemoglobin 29.6 pg (27-33); Mean Platelet Volume 9.4 fL (7.4-10.4); Monocytes # 0.6 10^3/uL (0.2-0.9); Monocytes % 10.4 %; Neutrophils # 3.34 10^3/uL (1.8-7.7); Nucleated Red Blood Cells % 0 %; Platelet Count 312 10^3/cmm (157-399); Red Blood Count 4.79 10^6/uL (3.85-5.65); Red Cell Distribution Width 13.8 % (12.1-15.1); White Blood Count 5.96 10^3/uL (3.29-11.43)
[2024-04-23 08:32] LABS: Bilirubin Urine Negative (Negative); Blood Urine Negative (Negative); Glucose Urine UA Negative (Normal); Ketones Urine Negative (Negative); Leukocyte Esterase Urine 1+ (Negative); Nitrate Urine Negative (Negative); Protein Urine Negative (Negative); Specific Gravity, Urine 1.014 (1.005-1.030); Urine Appearance Clear (CLEAR); Urine Color Yellow (Yellow); Urobilinogen Urine 0.2 mg/dL (Negative)
[2024-04-23 08:49] LABS: Alanine Aminotransferase 19 U/L (0-33); Albumin Level 4.3 g/dL (3.5-5.2); Alkaline Phosphatase 124 U/L (35-105); Aspartate Amino Transferase 22 U/L (0-32); Blood Urea Nitrogen 16 mg/dL (8-23); Calcium 9.4 mg/dL (8.5-10.5); Carbon Dioxide 25 mmol/L (22-29); Chloride 103 mmol/L (98-107); Creatinine Clr Calc Pharmacy 56.3312; Globulin 3.5 g/dL (1.3-4.6); Glucose 98 mg/dL (65-115); Osmolality Calculated 287 mOsm/kg (285-295); Sodium 138 mmol/L (136-145); Total Bilirubin 0.2 mg/dL (0.15-1.2); Total Protein 7.8 g/dL (6.6-8.7); Troponin(5th) Baseline 9 ng/L (0-10)
[2024-04-23 08:53] LABS: Anion Gap 14.1 (5-19); Potassium 4.1 mmol/L (3.5-5.1)
[2024-04-23 09:01] LABS: Add Urine Microscopic? YES; RBC Urine 0-4 /hpf (0-2); UA Manual Slide Review YES
[2024-04-23 09:02] LABS: Add Urine Culture? No; Mucus Urine TRACE /hpf; Squamous Epithelial Cell Urine 0-4 /hpf (0-5); Transitional Epi Cells Urine 0-4 /hpf
--- NOTE | 2024-04-23 09:19 | ECG_ITS ---
[facility] 2024-04[facility]23 Pat Name: Lorraine Ko Department: Room: Gender: Female Clinical Secretary: : [id number] Requested By: Abdoulaye Morfin Order Number: [id number] Reading MD: JONO MOTLEY Measurements Intervals [place] Rate: 69 P: 12 ND: 167 QRS: -28 QRSD: 90 T: 31 QT: 383 QTc: 412 Interpretive Statements SINUS RHYTHM BORDERLINE LEFT AXIS DEVIATION [QRS AXIS < -20] LOW QRS VOLTAGE IN PRECORDIAL LEADS [QRS DEFLECTION < 1.0 mV IN CHEST LEADS] Compared to ECG 04/23/2024 07:36:14 No significant changes Electronically Signed On 04-23-2024 16:14:43 SPA CONSULTANT by JONO MOTLEY [email or web address]
--- NOTE | 2024-04-24 08:14 | DCPLANNER ---
Message sent to Physical therapy for follow up on positional vertigo.
== END 2024-04-23 10:33 | disposition home or self-care (01) ==
PROVIDERS: Emergency Provider Family Medicine; PCP Family Medicine Adult Medicine
DX: H81.10 Benign paroxysmal vertigo, unspecified ear (principal)
CPT/HCPCS: 36415; 70450; 80053; 81001; 84484; 85025; 93005; 99284

== ENCOUNTER → 2024-07-24 11:12 | Outpatient (BNVA) | payer SELFPAY | PROVIDERS: PCP Family Medicine; Visit Provider Family Medicine | DX: E03.9 Hypothyroidism, unspecified (principal) | CPT/HCPCS: 84439; 84443 ==

== ENCOUNTER → 2024-10-16 11:37 | Outpatient (BNVA) | payer SELFPAY | PROVIDERS: PCP Family Medicine; Visit Provider Family Medicine | DX: E03.9 Hypothyroidism, unspecified (principal) | CPT/HCPCS: 84439; 84443 ==

== ENCOUNTER → 2025-01-17 11:32 | Outpatient (BNVA) | payer SELFPAY | PROVIDERS: PCP Family Medicine; Visit Provider Family Medicine | DX: E03.9 Hypothyroidism, unspecified (principal) | CPT/HCPCS: 84439; 84443 ==